=== PATIENT | male | born 1955 | race Caucasian/White ===

== ENCOUNTER 2017-11-28 10:34 | Inpatient (IN) | payer MEDICARE ==
[~2017-11-28] VITALS: Ht 180.3 cm; Wt 106.1 kg
[~2017-11-28 10:34] MED LIST: ASPI-1012 PO; CLIN300C9 PO; INSU100I13 SQ; LISI-613 PO; METF500T6 PO; PRAV40TA3 PO
[2017-11-28] MEDS ORDERED: DEXAMETHASONE SOD PHOSPHATE 10MG/ML 1ML VIAL ONE (11:25)
[2017-11-28] MEDS ORDERED: IPRATROPIUM/ALBUTEROL SULFATE 3 ML SOLUTION IH ONE ×2 (11:34→20:15)
[2017-11-28] MEDS ORDERED: ALBUTEROL SULFATE 0.083% 2.5 MG/3 ML INH IH ONE (13:26)
[2017-11-28 13:27] LABS: BASOPHILS % (AUTO) 0.4 % (0.0-5.0); EOSINOPHILS % (AUTO) 2.5 % (0.0-8.0); HEMATOCRIT 34.8 % (42-54); LYMPHOCYTES % (AUTO) 13.4 % (21.0-51.0); MEAN CORPUSCULAR HEMOGLOBIN 29.6 pg (27.0-33.0); MEAN CORPUSCULAR HGB CONC 34.4 g/dL (32.0-36.0); MEAN CORPUSCULAR VOLUME 86.1 fL (79-99); NEUTROPHILS % (AUTO) 80.7 % (40.0-77.0); PLATELET COUNT (AUTO) 268 K/uL (130-400); RED BLOOD CELL COUNT(AUTO) 4.05 MIL/uL (4.50-6.20); RED CELL DISTRIBUTION WIDTH 14.8 % (11.0-15.5); WHITE BLOOD COUNT (AUTO) 12.5 K/uL (4.8-10.8)
[2017-11-28 13:36] LABS: CREATININE 1.5 mg/dL (0.5-1.5); POTASSIUM 4.6 mmol/L (3.5-5.1)
[2017-11-28 13:51] LABS: CREATINE KINASE MB 1.2 ng/mL (0.5-3.6); CREATINE KINASE, TOTAL 248 U/L (21-232); MYOGLOBIN 139 ng/mL (10-92); TROPONIN I < 0.04 ng/mL (0.00-0.06)
[2017-11-28 13:56] LABS: B-TYPE NATRIURETIC PEPTIDE 75 pg/mL (0-100)
[2017-11-28] MEDS ORDERED: LEVOFLOXACIN 500 MG/D5W 100 ML 100 ML ONE (15:36)
[2017-11-28] MEDS ORDERED: METHYLPREDNISOLONE SOD SUCC 40MG/ML 1ML ONE (18:46)
[2017-11-28] MEDS ORDERED: ENOXAPARIN SODIUM 40 MG/0.4 ML SYRINGE SQ ONE (18:46)
[2017-11-28] MEDS ORDERED: CEFEPIME HCL 1 GM VIAL ONE (18:46)
[2017-11-28] MEDS ORDERED: INSULIN HUMULIN R 100 UNIT/ML 3ML ONE (20:24)
[2017-11-28] MEDS ORDERED: ACETAMINOPHEN 325 MG TAB ONE (21:08)
[2017-11-28 22:45] VITALS: BP 189/84
[2017-11-28] MEDS ORDERED: ACETAMINOPHEN 325 MG TAB PO PRN (23:15)
[2017-11-28] MEDS ORDERED: ONDANSETRON HCL 4 MG/2 ML VIAL IVP PRN (23:15)
[2017-11-28] MEDS ORDERED: DEXTROSE 50%-WATER 50 ML DISP.SYRIN IV PRN (23:15)
[2017-11-28] MEDS ORDERED: GLUCAGON 1MG KIT 1 MG ML IM PRN (23:15)
[2017-11-28 23:43] VITALS: BP 189/84
[2017-11-28] MEDS: IPRATROPIUM/ALBUTEROL SULFATE 3 ML SOLUTION IH SCH (23:54)
[2017-11-29] MEDS ORDERED: METOPROLOL TARTRATE 50 MG TAB ONE (00:13)
[2017-11-29] MEDS ORDERED: METOPROLOL TARTRATE 50 MG TAB PO ONE (00:15)
[2017-11-29 03:57] VITALS: BP 158/78
[2017-11-29 04:05] LABS: BASOPHILS % (AUTO) 0.1 % (0.0-5.0); HEMATOCRIT 32.1 % (42-54); LYMPHOCYTES % (AUTO) 14.9 % (21.0-51.0); MEAN CORPUSCULAR HEMOGLOBIN 29.5 pg (27.0-33.0); MEAN CORPUSCULAR VOLUME 86.8 fL (79-99); MONOCYTES % (AUTO) 4.1 % (3.0-13.0); NEUTROPHILS % (AUTO) 80.9 % (40.0-77.0); PLATELET COUNT (AUTO) 281 K/uL (130-400); RED CELL DISTRIBUTION WIDTH 15.2 % (11.0-15.5); WHITE BLOOD COUNT (AUTO) 8.6 K/uL (4.8-10.8)
[2017-11-29 04:16] LABS: INR 0.97 (0.85-1.15); PARTIAL THROMBOPLASTIN TIME 24.4 SEC (26.3-35.5); PROTHROMBIN TIME 10.2 SEC (9.6-11.6)
[2017-11-29] MEDS: CEFEPIME HCL 1 GM VIAL IVP SCH ×3 (04:23→20:59)
[2017-11-29 05:07] LABS: CREATININE 1.8 mg/dL (0.5-1.5); POTASSIUM 5.5 mmol/L (3.5-5.1)
[2017-11-29 05:11] LABS: ALBUMIN 2.3 g/dL (3.5-5.0); BILIRUBIN,TOTAL 0.3 mg/dL (0.2-1.0); MAGNESIUM 1.5 mg/dL (1.80-2.40); PHOSPHORUS 2.6 mg/dL (2.5-4.9); TOTAL PROTEIN, SERUM 6.7 g/dL (6.0-8.3)
[2017-11-29] MEDS: INSULIN R PO SS1 SQ SCH ×4 (06:30→20:55)
[2017-11-29] MEDS: IPRATROPIUM/ALBUTEROL SULFATE 3 ML SOLUTION IH SCH ×4 (06:51→23:38)
[2017-11-29 08:00] VITALS: BP 170/85
[2017-11-29] MEDS: METHYLPREDNISOLONE SOD SUCC 40MG/ML 1ML IVP SCH (08:37)
[2017-11-29] MEDS: METOPROLOL TARTRATE 50 MG TAB PO SCH ×2 (08:37→21:00)
[2017-11-29] MEDS: ENOXAPARIN SODIUM 40 MG/0.4 ML SYRINGE SQ SCH (08:38)
[2017-11-29 11:52] VITALS: BP 167/85
[2017-11-29] MEDS ORDERED: SODIUM CHLORIDE 3% FOR INHALATION 4 ML/AMP VIAL.NEB IH ONE (13:44)
[2017-11-29 16:00] VITALS: BP 153/89
[2017-11-29] MEDS: LEVOFLOXACIN 500 MG/D5W 100 ML 100 ML IV SCH (16:07)
[2017-11-29 20:00] VITALS: BP 158/83
[2017-11-30] VITALS: BP 166/84
[2017-11-30 04:00] VITALS: BP 168/84
[2017-11-30] MEDS: CEFEPIME HCL 1 GM VIAL IVP SCH ×3 (04:02→17:33)
[2017-11-30] MEDS: INSULIN R PO SS1 SQ SCH ×4 (06:18→21:52)
[2017-11-30] MEDS: IPRATROPIUM/ALBUTEROL SULFATE 3 ML SOLUTION IH SCH ×4 (07:08→23:22)
[2017-11-30 08:07] VITALS: BP 132/81
[2017-11-30] MEDS: OSELTAMIVIR PHOSPHATE 75 MG CAP PO SCH (09:27)
[2017-11-30] MEDS: ENOXAPARIN SODIUM 40 MG/0.4 ML SYRINGE SQ SCH (09:27)
[2017-11-30] MEDS: METHYLPREDNISOLONE SOD SUCC 40MG/ML 1ML IVP SCH (09:27)
[2017-11-30] MEDS: METOPROLOL TARTRATE 50 MG TAB PO SCH ×2 (09:27→21:50)
[2017-11-30] MEDS ORDERED: SODIUM POLYSTYRENE SULFONATE 15 GM/60 ML ML PO SCH (10:45)
[2017-11-30 12:01] VITALS: BP 158/88
[2017-11-30] MEDS: LEVOFLOXACIN 500 MG/D5W 100 ML 100 ML IV SCH (14:34)
[2017-11-30] MEDS: MAGNESIUM 2GM PREMIX 50ML 50 ML IV SCH (14:34)
[2017-11-30 16:00] VITALS: BP 158/86
[2017-11-30] MEDS ORDERED: BENZONATATE 100 MG CAPSULE PO PRN (16:45)
[2017-11-30 19:00] VITALS: BP 161/83
[2017-12-01] VITALS (10 sets, daily range): BP systolic 114–177; BP diastolic 57–87
[2017-12-01 03:41] LABS: HEMATOCRIT 33.5 % (42-54); MEAN CORPUSCULAR HEMOGLOBIN 28.9 pg (27.0-33.0); MEAN CORPUSCULAR HGB CONC 33.6 g/dL (32.0-36.0); MEAN CORPUSCULAR VOLUME 86.2 fL (79-99); PLATELET COUNT (AUTO) 324 K/uL (130-400); RED BLOOD CELL COUNT(AUTO) 3.88 MIL/uL (4.50-6.20); RED CELL DISTRIBUTION WIDTH 15.4 % (11.0-15.5); WHITE BLOOD COUNT (AUTO) 12.1 K/uL (4.8-10.8)
[2017-12-01 03:57] LABS: CREATININE 1.5 mg/dL (0.5-1.5); POTASSIUM 3.8 mmol/L (3.5-5.1)
[2017-12-01] MEDS: CEFEPIME HCL 1 GM VIAL IVP SCH ×3 (04:12→18:16)
[2017-12-01] MEDS: IPRATROPIUM/ALBUTEROL SULFATE 3 ML SOLUTION IH SCH ×3 (06:24→19:38)
[2017-12-01] MEDS: INSULIN R PO SS1 SQ SCH ×4 (06:30→20:50)
[2017-12-01] MEDS: METOPROLOL TARTRATE 50 MG TAB PO SCH ×2 (09:38→20:13)
[2017-12-01] MEDS: OSELTAMIVIR PHOSPHATE 75 MG CAP PO SCH (09:38)
[2017-12-01] MEDS: METHYLPREDNISOLONE SOD SUCC 40MG/ML 1ML IVP SCH (09:38)
[2017-12-01] MEDS: ENOXAPARIN SODIUM 40 MG/0.4 ML SYRINGE SQ SCH (09:39)
[2017-12-01] MEDS ORDERED: OMEG-53 PO (10:15)
[2017-12-01] MEDS ORDERED: METO25TA6 PO (10:15)
[2017-12-01] MEDS ORDERED: TRAZ-144 PO ×2 (10:15→12:05)
[2017-12-01] MEDS ORDERED: ASPI-1197 PO (10:15)
[2017-12-01] MEDS ORDERED: IRON PO (10:15)
[2017-12-01] MEDS ORDERED: CYAN-35 PO (10:15)
[2017-12-01] MEDS ORDERED: FOLIC PO (10:15)
[2017-12-01] MEDS ORDERED: FURO20TA4 PO (10:15)
[2017-12-01] MEDS ORDERED: AMIO200T2 PO (10:15)
[2017-12-01] MEDS ORDERED: LISI10TA7 PO (10:15)
[2017-12-01] MEDS ORDERED: AMIT10TA6 PO (10:15)
[2017-12-01] MEDS ORDERED: AMITRIPTYLINE HCL 10 MG TABLET PO SCH (12:00)
[2017-12-01] MEDS ORDERED: PRAV40TA3 PO (12:05)
[2017-12-01] MEDS: MAGNESIUM 2GM PREMIX 50ML 50 ML IV SCH (12:10)
[2017-12-01] MEDS: LISINOPRIL 10 MG TABLET PO SCH (12:26)
[2017-12-01] MEDS: LEVOFLOXACIN 500 MG/D5W 100 ML 100 ML IV SCH (15:41)
[2017-12-01] MEDS: METFORMIN HCL 500 MG TABLET PO SCH (17:22)
[2017-12-01] MEDS: FLUCONAZOLE 200 MG/NS 100 ML 100 ML IV SCH (17:22)
[2017-12-01] MEDS: INSULIN HUMULIN 70/30 100 UNIT/ML 3ML SQ SCH (17:32)
[2017-12-01] MEDS: ATORVASTATIN CALCIUM 10 MG TABLET PO SCH (20:13)
[2017-12-01] MEDS: FUROSEMIDE 20 MG TABLET PO SCH (20:13)
[2017-12-01] MEDS: TRAZODONE HCL 50 MG TAB PO SCH (20:13)
[2017-12-02] MEDS: IPRATROPIUM/ALBUTEROL SULFATE 3 ML SOLUTION IH SCH ×4 (00:09→16:57)
[2017-12-02] MEDS: CEFEPIME HCL 1 GM VIAL IVP SCH (02:57)
[2017-12-02 03:46] VITALS: BP 125/76
[2017-12-02] MEDS: INSULIN R PO SS1 SQ SCH ×4 (05:58→21:00)
[2017-12-02] MEDS: LISINOPRIL 10 MG TABLET PO SCH (08:38)
[2017-12-02] MEDS: AMIODARONE HCL 200 MG TABLET PO SCH (08:38)
[2017-12-02] MEDS: FISH OIL 1000 MG/CAP PO SCH (08:38)
[2017-12-02] MEDS: METOPROLOL TARTRATE 50 MG TAB PO SCH ×2 (08:39→20:22)
[2017-12-02] MEDS: ASPIRIN 81MG TAB.CHEW PO SCH (08:39)
[2017-12-02] MEDS: FUROSEMIDE 20 MG TABLET PO SCH ×2 (08:39→20:21)
[2017-12-02] MEDS: FERROUS SULFATE 325 MG TABLET.DR PO SCH (08:39)
[2017-12-02] MEDS: OSELTAMIVIR PHOSPHATE 75 MG CAP PO SCH (08:39)
[2017-12-02] MEDS: METFORMIN HCL 500 MG TABLET PO SCH ×2 (08:39→16:29)
[2017-12-02] MEDS: METHYLPREDNISOLONE SOD SUCC 40MG/ML 1ML IVP SCH (08:40)
[2017-12-02] MEDS: ENOXAPARIN SODIUM 40 MG/0.4 ML SYRINGE SQ SCH (08:40)
[2017-12-02] MEDS: FLUCONAZOLE 200 MG/NS 100 ML 100 ML IV SCH (08:41)
[2017-12-02] MEDS: INSULIN HUMULIN 70/30 100 UNIT/ML 3ML SQ SCH ×2 (08:54→20:44)
[2017-12-02] MEDS ORDERED: FLUCONAZOLE 200 MG/NS 100 ML 100 ML IV SCH (09:00)
[2017-12-02] MEDS ORDERED: LISINOPRIL 10 MG TABLET PO SCH (09:00)
[2017-12-02] MEDS: FOLIC PO SCH (09:00)
[2017-12-02 09:07] VITALS: BP 135/83
[2017-12-02] MEDS: CYANOCOBALAMIN (VITAMIN B-12) 1,000 MCG TABLET PO SCH (09:42)
[2017-12-02 12:08] VITALS: BP 153/72
[2017-12-02 15:47] VITALS: BP 147/94
[2017-12-02] MEDS: LEVOFLOXACIN 500 MG/D5W 100 ML 100 ML IV SCH (16:29)
[2017-12-02 19:35] VITALS: BP 158/62
[2017-12-02] MEDS: ATORVASTATIN CALCIUM 10 MG TABLET PO SCH (20:21)
[2017-12-02] MEDS: TRAZODONE HCL 50 MG TAB PO SCH (20:21)
[2017-12-02 23:21] VITALS: BP 147/86
[2017-12-03] MEDS: IPRATROPIUM/ALBUTEROL SULFATE 3 ML SOLUTION IH SCH ×4 (00:19→19:07)
[2017-12-03 03:00] VITALS: BP 123/85
[2017-12-03] MEDS: INSULIN R PO SS1 SQ SCH ×3 (06:15→20:19)
[2017-12-03 06:18] LABS: HEMATOCRIT 36.5 % (42-54); MEAN CORPUSCULAR HEMOGLOBIN 28.9 pg (27.0-33.0); MEAN CORPUSCULAR HGB CONC 33.7 g/dL (32.0-36.0); MEAN CORPUSCULAR VOLUME 85.7 fL (79-99); PLATELET COUNT (AUTO) 377 K/uL (130-400); RED BLOOD CELL COUNT(AUTO) 4.26 MIL/uL (4.50-6.20); WHITE BLOOD COUNT (AUTO) 13.5 K/uL (4.8-10.8)
[2017-12-03 06:26] LABS: CREATININE 1.6 mg/dL (0.5-1.5); MAGNESIUM 1.8 mg/dL (1.80-2.40); POTASSIUM 3.9 mmol/L (3.5-5.1)
[2017-12-03 07:33] VITALS: BP 114/49
[2017-12-03] MEDS: FOLIC PO SCH (08:10)
[2017-12-03] MEDS: FISH OIL 1000 MG/CAP PO SCH (08:37)
[2017-12-03] MEDS: ASPIRIN 81MG TAB.CHEW PO SCH (08:38)
[2017-12-03] MEDS: METHYLPREDNISOLONE SOD SUCC 40MG/ML 1ML IVP SCH (08:38)
[2017-12-03] MEDS: METFORMIN HCL 500 MG TABLET PO SCH (08:38)
[2017-12-03] MEDS: FUROSEMIDE 20 MG TABLET PO SCH ×2 (08:38→20:14)
[2017-12-03] MEDS: METOPROLOL TARTRATE 50 MG TAB PO SCH ×2 (08:38→20:14)
[2017-12-03] MEDS: AMIODARONE HCL 200 MG TABLET PO SCH (08:38)
[2017-12-03] MEDS: CYANOCOBALAMIN (VITAMIN B-12) 1,000 MCG TABLET PO SCH (08:38)
[2017-12-03] MEDS: OSELTAMIVIR PHOSPHATE 75 MG CAP PO SCH (08:38)
[2017-12-03] MEDS: FERROUS SULFATE 325 MG TABLET.DR PO SCH (08:38)
[2017-12-03] MEDS: FLUCONAZOLE 200 MG/NS 100 ML 100 ML IV SCH (08:39)
[2017-12-03] MEDS: LISINOPRIL 10 MG TABLET PO SCH (08:40)
[2017-12-03] MEDS: ENOXAPARIN SODIUM 40 MG/0.4 ML SYRINGE SQ SCH (08:40)
[2017-12-03] MEDS: INSULIN HUMULIN 70/30 100 UNIT/ML 3ML SQ SCH ×2 (08:56→20:18)
[2017-12-03 11:24] VITALS: BP 117/70
[2017-12-03] MEDS: LEVOFLOXACIN 500 MG/D5W 100 ML 100 ML IV SCH (15:22)
[2017-12-03 16:15] VITALS: BP 124/64
[2017-12-03 19:15] VITALS: BP 130/59
[2017-12-03] MEDS: ATORVASTATIN CALCIUM 10 MG TABLET PO SCH (20:14)
[2017-12-03] MEDS: TRAZODONE HCL 50 MG TAB PO SCH (21:26)
[2017-12-03 23:20] VITALS: BP 135/72
[2017-12-04] MEDS: IPRATROPIUM/ALBUTEROL SULFATE 3 ML SOLUTION IH SCH ×3 (00:40→12:23)
[2017-12-04 03:20] VITALS: BP 136/71
[2017-12-04] MEDS: INSULIN R PO SS1 SQ SCH ×2 (06:41→11:30)
[2017-12-04] MEDS: FLUCONAZOLE 200 MG/NS 100 ML 100 ML IV SCH (07:58)
[2017-12-04] MEDS: OSELTAMIVIR PHOSPHATE 75 MG CAP PO SCH (07:58)
[2017-12-04] MEDS: ASPIRIN 81MG TAB.CHEW PO SCH (07:58)
[2017-12-04] MEDS: FERROUS SULFATE 325 MG TABLET.DR PO SCH (07:58)
[2017-12-04] MEDS: AMIODARONE HCL 200 MG TABLET PO SCH (07:58)
[2017-12-04] MEDS: CYANOCOBALAMIN (VITAMIN B-12) 1,000 MCG TABLET PO SCH (07:58)
[2017-12-04] MEDS: METFORMIN HCL 500 MG TABLET PO SCH (07:58)
[2017-12-04] MEDS: FISH OIL 1000 MG/CAP PO SCH (07:58)
[2017-12-04] MEDS: FUROSEMIDE 20 MG TABLET PO SCH (07:59)
[2017-12-04] MEDS: LISINOPRIL 10 MG TABLET PO SCH (07:59)
[2017-12-04] MEDS: METOPROLOL TARTRATE 50 MG TAB PO SCH (07:59)
[2017-12-04 08:00] VITALS: BP 135/70
[2017-12-04] MEDS: ENOXAPARIN SODIUM 40 MG/0.4 ML SYRINGE SQ SCH (08:00)
[2017-12-04] MEDS: INSULIN HUMULIN 70/30 100 UNIT/ML 3ML SQ SCH (08:14)
[2017-12-04] MEDS: METHYLPREDNISOLONE SOD SUCC 40MG/ML 1ML IVP SCH (09:51)
[2017-12-04 11:00] VITALS: BP 127/58
[2017-12-04] MEDS ORDERED: FLUC200T8 PO (14:37)
[2017-12-04] MEDS ORDERED: LEVO500T89 PO (14:37)
[2017-12-04] MEDS: LEVOFLOXACIN 500 MG/D5W 100 ML 100 ML IV SCH (14:48)
== END 2017-12-04 16:55 | disposition home or self-care (01) | DRG 871 ==
LOC: EDH 10:34 → EDHIP 15:11 → MERGE 15:11 → 3AH 22:07
PROVIDERS: ADMIT Internal Medicine Infectious Disease; ATTEND Internal Medicine Infectious Disease
DX: A41.9 Sepsis, unspecified organism (principal); J11.00 Influenza due to unidentified influenza virus with unspecified type of pneumonia; N17.9 Acute kidney failure, unspecified; E11.9 Type 2 diabetes mellitus without complications; I10 Essential (primary) hypertension; E78.5 Hyperlipidemia, unspecified; N28.9 Disorder of kidney and ureter, unspecified; F32.9 Major depressive disorder, single episode, unspecified; E66.01 Morbid (severe) obesity due to excess calories; Z68.32 Body mass index [BMI] 32.0-32.9, adult; Z83.3 Family history of diabetes mellitus; Z82.49 Family history of ischemic heart disease and other diseases of the circulatory system
CPT/HCPCS: 36415; 71046; 71250; 80048; 80053; 82550; 82553; 82948; 83605; 83735; 83874; 83880; 84100; 84484; 85025; 85027; 85610; 85730; 87040; 87071; 87205; 93005; 94640; 94664; A4218; J0692; J1100; J1450; J1650; J1815; J1956; J2920; J3475

== ENCOUNTER 2022-06-10 19:21 | Inpatient (IN) | payer MEDICARE, OTHER ==
[~2022-06-10] VITALS: Ht 180.3 cm; Wt 97.6 kg
[~2022-06-10 19:21] MED LIST changes: +AMIO200T68 PO; +AMIT10TA6 PO; -ASPI-1012 PO; +ASPI-1197 PO; -CLIN300C9 PO; +CYAN-35 PO; +FLUC200T12 PO; +FOLIC PO; +FURO20TA4 PO; +IRON PO; +LEVO-70 PO; -LISI-613 PO; +LISI10TA24 PO; +METF-444 PO; -METF500T6 PO; +METO25TA6 PO; +OMEG-53 PO; +TRAZ-185 PO
[2022-06-10 20:33] LABS: BASOPHILS % (AUTO) 0.3 % (0.0-5.0); HEMATOCRIT 28.4 % (42-54); LYMPHOCYTES % (AUTO) 34.6 % (21.0-51.0); MEAN CORPUSCULAR HEMOGLOBIN 31.8 pg (27.0-33.0); MEAN CORPUSCULAR HGB CONC 33.8 g/dL (32.0-36.0); MONOCYTES % (AUTO) 8.2 % (3.0-13.0); NEUTROPHILS % (AUTO) 51.6 % (40.0-77.0); PLATELET COUNT (AUTO) 220 K/uL (130-400); RED BLOOD CELL COUNT(AUTO) 3.02 MIL/uL (4.50-6.20); RED CELL DISTRIBUTION WIDTH 13.7 % (11.0-15.5); WHITE BLOOD COUNT (AUTO) 8.8 K/uL (4.8-10.8)
[2022-06-10 20:35] LABS: APPEARANCE,URINE SL CLOUDY (CLEAR); BILIRUBIN,URINE NEGATIVE (NEGATIVE); COLOR,URINE YELLOW (YELLOW); GLUCOSE, URINE (UA) >=1000 mg/dL (NEGATIVE); KETONES,URINE 5 mg/dL (NEGATIVE); LEUKOCYTE ESTERASE ,URINE NEGATIVE (NEGATIVE); NITRATE,URINE NEGATIVE (NEGATIVE); OCCULT BLOOD,URINE NEGATIVE (NEGATIVE); PROTEIN,URINE 100 mg/dL (NEGATIVE)
[2022-06-10 20:43] LABS: BACTERIA,URINE Rare /HPF (None Seen); RBC,URINE 0-1 /HPF (0-1); SQUAMOUS EPITHELIAL CELL,UR Rare /HPF (0-2)
[2022-06-10 20:47] LABS: ABG BASE EXCESS -3.6 mmol/L (-2.0-3.0); ABG HCO3 20.6 mmol/L (21.0-28.0); ABG OXYGEN SATURATION 94.1 % (95.0-99.0); ABG PCO2 35 mmHg (35-48)
[2022-06-10 20:54] LABS: ALBUMIN 3.3 g/dL (3.5-5.0); CREATININE 2.4 mg/dL (0.5-1.5); POTASSIUM 4.1 mmol/L (3.5-5.1)
[2022-06-10] MEDS ORDERED: GUAIFENESIN-DM 200/20 MG 10 ML PO ONE (23:00)
[2022-06-10] MEDS ORDERED: IPRATROPIUM/ALBUTEROL SULFATE 3 ML SOLUTION IH ONE (23:00)
[2022-06-10] MEDS ORDERED: FUROSEMIDE 40MG VIAL IV ONE (23:00)
[2022-06-11] MEDS ORDERED: ACETAMINOPHEN 325 MG TAB PO PRN
[2022-06-11 00:52] VITALS: BP 151/73
[2022-06-11 04:38] VITALS: BP 117/57
[2022-06-11 05:42] LABS: BASOPHILS % (AUTO) 0.2 % (0.0-5.0); EOSINOPHILS % (AUTO) 4.2 % (0.0-8.0); HEMATOCRIT 25.8 % (42-54); LYMPHOCYTES % (AUTO) 29.4 % (21.0-51.0); MEAN CORPUSCULAR HGB CONC 34.1 g/dL (32.0-36.0); MEAN CORPUSCULAR VOLUME 93.8 fL (79-99); MONOCYTES % (AUTO) 9.2 % (3.0-13.0); NEUTROPHILS % (AUTO) 56.6 % (40.0-77.0); PLATELET COUNT (AUTO) 176 K/uL (130-400); RED BLOOD CELL COUNT(AUTO) 2.75 MIL/uL (4.50-6.20); RED CELL DISTRIBUTION WIDTH 13.7 % (11.0-15.5)
[2022-06-11 05:59] LABS: CREATININE 2.3 mg/dL (0.5-1.5); MAGNESIUM 1.8 mg/dL (1.80-2.40); POTASSIUM 4.6 mmol/L (3.5-5.1)
[2022-06-11 08:00] VITALS: BP 150/77
[2022-06-11] MEDS: DOXYCYCLINE HYCLATE 100 MG TABLET PO SCH ×2 (09:20→20:54)
[2022-06-11] MEDS ORDERED: GUAIFENESIN-DM 200/20 MG 10 ML PO PRN (09:30)
[2022-06-11] MEDS: CEFEPIME HCL 2 GM VIAL IVP SCH ×2 (11:51)
[2022-06-11 12:00] VITALS: BP 126/64
[2022-06-11] MEDS ORDERED: DEXTROSE 50%-WATER 50 ML DISP.SYRIN IV PRN (14:00)
[2022-06-11] MEDS ORDERED: GLUCAGON 1MG KIT 1 MG ML IM PRN (14:00)
[2022-06-11] MEDS: FAMOTIDINE 20MG VIAL IV SCH (15:56)
[2022-06-11] MEDS: HEPARIN 5,000 UNIT VIAL SQ SCH (15:57)
[2022-06-11] MEDS: INSULIN HUMULIN R 100 UNIT/ML 3ML SQ SCH ×2 (15:58→20:55)
[2022-06-11 16:00] VITALS: BP 120/62
[2022-06-11] MEDS: FUROSEMIDE 20 MG TABLET PO SCH (17:23)
[2022-06-11] MEDS ORDERED: DULO30CA52 PO (17:40)
[2022-06-11] MEDS ORDERED: OMEP20CA12 PO (17:40)
[2022-06-11] MEDS ORDERED: INSU100V37 SQ (17:44)
[2022-06-11 19:00] VITALS: BP 133/64
[2022-06-11] MEDS: IPRATROPIUM/ALBUTEROL SULFATE 3 ML SOLUTION IH PRN (20:31)
[2022-06-11] MEDS: ATORVASTATIN 10 MG TABLET PO SCH (20:54)
[2022-06-11] MEDS: METOPROLOL TARTRATE 25 MG TAB PO SCH (20:54)
[2022-06-11] MEDS: DULOXETINE HCL 30 MG CAP PO SCH (20:54)
[2022-06-12] VITALS (8 sets, daily range): BP systolic 97–153; BP diastolic 56–75
[2022-06-12] MEDS: CEFEPIME HCL 2 GM VIAL IVP SCH ×3 (00:21→23:49)
[2022-06-12] MEDS: HEPARIN 5,000 UNIT VIAL SQ SCH ×2 (03:23→13:38)
[2022-06-12] MEDS: IPRATROPIUM/ALBUTEROL SULFATE 3 ML SOLUTION IH PRN ×2 (06:26→23:51)
[2022-06-12] MEDS: INSULIN HUMULIN R 100 UNIT/ML 3ML SQ SCH ×4 (07:30→20:44)
[2022-06-12] MEDS: FAMOTIDINE 20MG VIAL IV SCH (08:28)
[2022-06-12] MEDS: SOLU-MEDROL 40MG VIAL IVP SCH (08:29)
[2022-06-12] MEDS: ASPIRIN 81MG CHEW TAB PO SCH (08:33)
[2022-06-12] MEDS: FERROUS SULFATE 325 MG TABLET.DR PO SCH (08:33)
[2022-06-12] MEDS: CYANOCOBALAMIN (VITAMIN B-12) 1,000 MCG TABLET PO SCH (08:33)
[2022-06-12] MEDS: DOXYCYCLINE HYCLATE 100 MG TABLET PO SCH ×2 (08:34→20:44)
[2022-06-12] MEDS: METOPROLOL TARTRATE 25 MG TAB PO SCH ×2 (08:34→20:44)
[2022-06-12] MEDS: PANTOPRAZOLE 40 MG TAB DR PO SCH (08:34)
[2022-06-12] MEDS: DULOXETINE HCL 30 MG CAP PO SCH ×2 (08:37→20:44)
[2022-06-12] MEDS: FOLIC ACID 400 MCG PO SCH (08:38)
[2022-06-12] MEDS: LISINOPRIL 10 MG TABLET PO SCH (10:50)
[2022-06-12] MEDS: FUROSEMIDE 20 MG TABLET PO SCH ×2 (12:07→21:29)
[2022-06-12] MEDS: BENZONATATE 100 MG CAPSULE PO SCH ×2 (16:54→23:49)
[2022-06-12] MEDS: ATORVASTATIN 10 MG TABLET PO SCH (20:44)
[2022-06-13 00:57] VITALS: BP 131/62
[2022-06-13] MEDS: HEPARIN 5,000 UNIT VIAL SQ SCH ×2 (03:07→14:35)
[2022-06-13 04:27] VITALS: BP 144/71
[2022-06-13 04:57] LABS: MEAN CORPUSCULAR HEMOGLOBIN 32.4 pg (27.0-33.0); MEAN CORPUSCULAR HGB CONC 34.4 g/dL (32.0-36.0); MEAN CORPUSCULAR VOLUME 94.1 fL (79-99); RED BLOOD CELL COUNT(AUTO) 2.87 MIL/uL (4.50-6.20); RED CELL DISTRIBUTION WIDTH 13.2 % (11.0-15.5); WHITE BLOOD COUNT (AUTO) 9.9 K/uL (4.8-10.8)
[2022-06-13 05:07] LABS: MAGNESIUM 1.8 mg/dL (1.80-2.40); POTASSIUM 4.1 mmol/L (3.5-5.1)
[2022-06-13] MEDS: IPRATROPIUM/ALBUTEROL SULFATE 3 ML SOLUTION IH PRN (06:48)
[2022-06-13] MEDS: FUROSEMIDE 20 MG TABLET PO SCH ×2 (06:51→16:53)
[2022-06-13] MEDS: INSULIN HUMULIN R 100 UNIT/ML 3ML SQ SCH ×4 (06:52→20:12)
[2022-06-13 07:02] VITALS: BP 127/82
[2022-06-13] MEDS: FOLIC ACID 400 MCG PO SCH (09:00)
[2022-06-13] MEDS: ASPIRIN 81MG CHEW TAB PO SCH (09:52)
[2022-06-13] MEDS: FAMOTIDINE 20MG VIAL IV SCH (09:52)
[2022-06-13] MEDS: DOXYCYCLINE HYCLATE 100 MG TABLET PO SCH ×2 (09:53→20:06)
[2022-06-13] MEDS: METOPROLOL TARTRATE 25 MG TAB PO SCH ×2 (09:53→20:06)
[2022-06-13] MEDS: PANTOPRAZOLE 40 MG TAB DR PO SCH (09:53)
[2022-06-13] MEDS: DULOXETINE HCL 30 MG CAP PO SCH ×2 (09:53→20:05)
[2022-06-13] MEDS: CYANOCOBALAMIN (VITAMIN B-12) 1,000 MCG TABLET PO SCH (09:53)
[2022-06-13] MEDS: FERROUS SULFATE 325 MG TABLET.DR PO SCH (09:53)
[2022-06-13] MEDS: LISINOPRIL 10 MG TABLET PO SCH (09:53)
[2022-06-13] MEDS: BENZONATATE 100 MG CAPSULE PO SCH ×2 (09:59→16:53)
[2022-06-13] MEDS: SOLU-MEDROL 40MG VIAL IVP SCH (09:59)
[2022-06-13] MEDS ORDERED: MAGNESIUM 2GM PREMIX 50ML 50 ML IV SCH (11:00)
[2022-06-13] MEDS: CEFEPIME HCL 2 GM VIAL IVP SCH (11:58)
[2022-06-13 12:02] VITALS: BP 118/60
[2022-06-13 16:06] VITALS: BP 129/54
[2022-06-13] MEDS: ATORVASTATIN 10 MG TABLET PO SCH (20:06)
[2022-06-13 20:19] VITALS: BP 127/69
[2022-06-14] MEDS: CEFEPIME HCL 2 GM VIAL IVP SCH ×3 (00:09→23:13)
[2022-06-14] MEDS: BENZONATATE 100 MG CAPSULE PO SCH ×3 (00:09→16:30)
[2022-06-14 01:43] VITALS: BP 142/73
[2022-06-14] MEDS: HEPARIN 5,000 UNIT VIAL SQ SCH ×2 (02:25→14:07)
[2022-06-14 04:21] VITALS: BP 128/69
[2022-06-14] MEDS: INSULIN HUMULIN R 100 UNIT/ML 3ML SQ SCH ×2 (05:33→14:07)
[2022-06-14] MEDS: FUROSEMIDE 20 MG TABLET PO SCH ×2 (06:16→23:13)
[2022-06-14 07:09] VITALS: BP 125/76
[2022-06-14] MEDS: ASPIRIN 81MG CHEW TAB PO SCH (08:50)
[2022-06-14] MEDS: FAMOTIDINE 20MG VIAL IV SCH (08:50)
[2022-06-14] MEDS: CYANOCOBALAMIN (VITAMIN B-12) 1,000 MCG TABLET PO SCH (08:51)
[2022-06-14] MEDS: PANTOPRAZOLE 40 MG TAB DR PO SCH (08:51)
[2022-06-14] MEDS: LISINOPRIL 10 MG TABLET PO SCH (08:51)
[2022-06-14] MEDS: FERROUS SULFATE 325 MG TABLET.DR PO SCH (08:51)
[2022-06-14] MEDS: DULOXETINE HCL 30 MG CAP PO SCH ×2 (08:51→20:02)
[2022-06-14] MEDS: SOLU-MEDROL 40MG VIAL IVP SCH (08:51)
[2022-06-14] MEDS: DOXYCYCLINE HYCLATE 100 MG TABLET PO SCH ×2 (08:51→20:02)
[2022-06-14] MEDS: METOPROLOL TARTRATE 25 MG TAB PO SCH ×2 (08:51→20:03)
[2022-06-14] MEDS: FOLIC ACID 400 MCG PO SCH (08:52)
[2022-06-14] MEDS ORDERED: INSULIN GLARGINE 100 UNITS/ML 10 ML VIAL SQ SCH (10:00)
[2022-06-14 10:59] LABS: BASOPHILS % (AUTO) 0.2 % (0.0-5.0); HEMATOCRIT 30.1 % (42-54); LYMPHOCYTES % (AUTO) 15.7 % (21.0-51.0); MEAN CORPUSCULAR HEMOGLOBIN 32.5 pg (27.0-33.0); MEAN CORPUSCULAR HGB CONC 33.9 g/dL (32.0-36.0); MEAN CORPUSCULAR VOLUME 95.9 fL (79-99); MONOCYTES % (AUTO) 4.5 % (3.0-13.0); NEUTROPHILS % (AUTO) 76.2 % (40.0-77.0); PLATELET COUNT (AUTO) 239 K/uL (130-400); RED BLOOD CELL COUNT(AUTO) 3.14 MIL/uL (4.50-6.20); RED CELL DISTRIBUTION WIDTH 13.9 % (11.0-15.5); WHITE BLOOD COUNT (AUTO) 8.9 K/uL (4.8-10.8)
[2022-06-14 11:24] LABS: POTASSIUM 5.3 mmol/L (3.5-5.1)
[2022-06-14 11:28] LABS: ALBUMIN 3.2 g/dL (3.5-5.0); TOTAL PROTEIN, SERUM 7.9 g/dL (6.0-8.3)
[2022-06-14 12:19] VITALS: BP 131/67
[2022-06-14] MEDS: IPRATROPIUM/ALBUTEROL SULFATE 3 ML SOLUTION IH SCH ×3 (12:46→23:00)
[2022-06-14 16:02] VITALS: BP 109/56
[2022-06-14] MEDS: ATORVASTATIN 10 MG TABLET PO SCH (20:02)
[2022-06-14] MEDS: INSULIN GLARGINE 100 UNITS/ML 10 ML VIAL SQ SCH (20:07)
[2022-06-14] MEDS ORDERED: INSULIN HUMULIN R 100 UNIT/ML 3ML SQ SCH (21:00)
[2022-06-14 22:11] VITALS: BP 97/56
[2022-06-15] MEDS: BENZONATATE 100 MG CAPSULE PO SCH ×4 (00:03→23:54)
[2022-06-15] MEDS: INSULIN HUMULIN R 100 UNIT/ML 3ML SQ SCH ×4 (00:04→16:53)
[2022-06-15 01:01] VITALS: BP 135/65
[2022-06-15] MEDS: HEPARIN 5,000 UNIT VIAL SQ SCH ×2 (03:15→16:05)
[2022-06-15 04:39] LABS: HEMATOCRIT 26.3 % (42-54); MEAN CORPUSCULAR HEMOGLOBIN 32.3 pg (27.0-33.0); MEAN CORPUSCULAR HGB CONC 34.6 g/dL (32.0-36.0); MEAN CORPUSCULAR VOLUME 93.3 fL (79-99); RED BLOOD CELL COUNT(AUTO) 2.82 MIL/uL (4.50-6.20); RED CELL DISTRIBUTION WIDTH 13.2 % (11.0-15.5); WHITE BLOOD COUNT (AUTO) 9.6 K/uL (4.8-10.8)
[2022-06-15 04:45] VITALS: BP 105/64
[2022-06-15 04:56] LABS: ALBUMIN 3.1 g/dL (3.5-5.0); CREATININE 2.2 mg/dL (0.5-1.5); MAGNESIUM 1.8 mg/dL (1.80-2.40); POTASSIUM 4.7 mmol/L (3.5-5.1); TOTAL PROTEIN, SERUM 7.6 g/dL (6.0-8.3)
[2022-06-15] MEDS: IPRATROPIUM/ALBUTEROL SULFATE 3 ML SOLUTION IH SCH ×4 (06:28→23:30)
[2022-06-15] MEDS: INSULIN GLARGINE 100 UNITS/ML 10 ML VIAL SQ SCH ×2 (06:50→21:07)
[2022-06-15 07:54] VITALS: BP 109/54
[2022-06-15] MEDS: FERROUS SULFATE 325 MG TABLET.DR PO SCH (08:37)
[2022-06-15] MEDS: ASPIRIN 81MG CHEW TAB PO SCH (08:37)
[2022-06-15] MEDS: DULOXETINE HCL 30 MG CAP PO SCH ×2 (08:38→21:06)
[2022-06-15] MEDS: AMLODIPINE 2.5 MG TAB PO SCH (08:38)
[2022-06-15] MEDS: METOPROLOL TARTRATE 25 MG TAB PO SCH ×2 (08:38→21:06)
[2022-06-15] MEDS: DOXYCYCLINE HYCLATE 100 MG TABLET PO SCH ×2 (08:39→21:06)
[2022-06-15] MEDS: CYANOCOBALAMIN (VITAMIN B-12) 1,000 MCG TABLET PO SCH (08:39)
[2022-06-15] MEDS: FAMOTIDINE 20MG VIAL IV SCH (08:43)
[2022-06-15] MEDS: FOLIC ACID 400 MCG PO SCH (08:58)
[2022-06-15] MEDS: FUROSEMIDE 20 MG TABLET PO SCH ×2 (10:14→23:54)
[2022-06-15 12:00] VITALS: BP 130/63
[2022-06-15] MEDS: CEFEPIME HCL 2 GM VIAL IVP SCH ×2 (12:17→23:54)
[2022-06-15 16:00] VITALS: BP 131/67
[2022-06-15 20:00] VITALS: BP 127/53
[2022-06-15] MEDS: ATORVASTATIN 10 MG TABLET PO SCH (21:06)
[2022-06-16] MEDS: INSULIN HUMULIN R 100 UNIT/ML 3ML SQ SCH ×4 (00:09→16:57)
[2022-06-16 00:48] VITALS: BP 115/69
[2022-06-16] MEDS: HEPARIN 5,000 UNIT VIAL SQ SCH (02:35)
[2022-06-16 04:52] VITALS: BP 96/42
[2022-06-16] MEDS: IPRATROPIUM/ALBUTEROL SULFATE 3 ML SOLUTION IH SCH ×2 (06:36→11:04)
[2022-06-16 08:00] VITALS: BP 132/68
[2022-06-16] MEDS: FOLIC ACID 400 MCG PO SCH (08:23)
[2022-06-16] MEDS ORDERED: FUROSEMIDE 20 MG TABLET PO SCH (08:30)
[2022-06-16] MEDS: AMLODIPINE 2.5 MG TAB PO SCH (10:15)
[2022-06-16] MEDS: BENZONATATE 100 MG CAPSULE PO SCH (10:15)
[2022-06-16] MEDS: CYANOCOBALAMIN (VITAMIN B-12) 1,000 MCG TABLET PO SCH (10:15)
[2022-06-16] MEDS: ASPIRIN 81MG CHEW TAB PO SCH (10:15)
[2022-06-16] MEDS: DOXYCYCLINE HYCLATE 100 MG TABLET PO SCH (10:15)
[2022-06-16] MEDS: FERROUS SULFATE 325 MG TABLET.DR PO SCH (10:15)
[2022-06-16] MEDS: METOPROLOL TARTRATE 25 MG TAB PO SCH (10:15)
[2022-06-16] MEDS: DULOXETINE HCL 30 MG CAP PO SCH (10:16)
[2022-06-16] MEDS: FAMOTIDINE 20MG VIAL IV SCH (10:16)
[2022-06-16] MEDS: INSULIN GLARGINE 100 UNITS/ML 10 ML VIAL SQ SCH (10:19)
[2022-06-16 12:00] VITALS: BP 152/73
[2022-06-16] MEDS: CEFEPIME HCL 2 GM VIAL IVP SCH (12:56)
[2022-06-16] MEDS ORDERED: BENZONATATE 100 MG CAPSULE PO SCH (15:00)
[2022-06-16 16:00] VITALS: BP 119/69
[2022-06-16] MEDS ORDERED: HEPARIN 5,000 UNIT VIAL SQ SCH (21:00)
== END 2022-06-16 18:08 | disposition home or self-care (01) | DRG 193 ==
LOC: EDH 19:21 → EDHIP 06-11 00:04 → 3AH 06-11 01:13
PROVIDERS: ADMIT Internal Medicine Infectious Disease; ATTEND Internal Medicine Infectious Disease
DX: J18.9 Pneumonia, unspecified organism (principal); J96.21 Acute and chronic respiratory failure with hypoxia; I13.0 Hypertensive heart and chronic kidney disease with heart failure and stage 1 through stage 4 chronic kidney disease, or unspecified chronic kidney disease; N17.9 Acute kidney failure, unspecified; I50.30 Unspecified diastolic (congestive) heart failure; J44.0 Chronic obstructive pulmonary disease with (acute) lower respiratory infection; Z20.822 Contact with and (suspected) exposure to COVID-19; F32.A Depression, unspecified; I25.10 Atherosclerotic heart disease of native coronary artery without angina pectoris; K21.9 Gastro-esophageal reflux disease without esophagitis; K80.20 Calculus of gallbladder without cholecystitis without obstruction; N18.32 Chronic kidney disease, stage 3b; G62.9 Polyneuropathy, unspecified; D64.9 Anemia, unspecified; E11.22 Type 2 diabetes mellitus with diabetic chronic kidney disease; E11.51 Type 2 diabetes mellitus with diabetic peripheral angiopathy without gangrene; E66.9 Obesity, unspecified; E78.00 Pure hypercholesterolemia, unspecified; E87.5 Hyperkalemia; Z82.3 Family history of stroke; Z82.49 Family history of ischemic heart disease and other diseases of the circulatory system; Z83.3 Family history of diabetes mellitus; Z87.891 Personal history of nicotine dependence; Z95.1 Presence of aortocoronary bypass graft
CPT/HCPCS: 36415; 36600; 71045; 71250; 78582; 80048; 80053; 81001; 82803; 82948; 83735; 83880; 84075; 84484; 85025; 85027; 85378; 87635; 87804; 93005; 93970; 94640; A9540; A9558; C9803; G0378; J0692; J1644; J1815; J1940; J2920; J3490

== ENCOUNTER 2023-08-12 13:46 | Emergency (ER) | payer OTHER ==
[~2023-08-12] VITALS: Ht 180.3 cm; Wt 100.2 kg
[~2023-08-12 13:46] MED LIST changes: -AMIO200T68 PO; -AMIT10TA6 PO; +DULO30CA52 PO; -FLUC200T12 PO; -FURO20TA4 PO; +INSU100V37 SQ; -LEVO-70 PO; -METF-444 PO; -OMEG-53 PO; +OMEP20CA12 PO; -TRAZ-185 PO
[2023-08-12] MEDS ORDERED: NITROGLYCERIN 0.4 MG SL TAB SL ONE (13:56)
[2023-08-12 14:11] LABS: BASOPHILS # (AUTO) 0.02 K/uL (0.00-0.20); BASOPHILS % (AUTO) 0.3 % (0.0-5.0); EOSINOPHILS # (AUTO) 0.36 K/uL (0.00-0.70); EOSINOPHILS % (AUTO) 4.6 % (0.0-8.0); HEMATOCRIT 30.4 % (42-54); IMMATURE GRANULOCYTE ABSOLUTE 0.02 K/uL (0-1); LYMPHOCYTES # (AUTO) 3.1 K/uL (1.0-4.8); LYMPHOCYTES % (AUTO) 40.2 % (21.0-51.0); MEAN CORPUSCULAR HEMOGLOBIN 31.9 pg (27.0-33.0); MEAN CORPUSCULAR HGB CONC 34.2 g/dL (32.0-36.0); MEAN CORPUSCULAR VOLUME 93.3 fL (79-99); MONOCYTES # (AUTO) 0.7 K/uL (0.1-1.0); NEUTROPHILS # (AUTO) 3.5 K/uL (1.8-7.7); NEUTROPHILS % (AUTO) 45.6 % (40.0-77.0); PLATELET COUNT (AUTO) 151 K/uL (130-400); RED BLOOD CELL COUNT(AUTO) 3.26 MIL/uL (4.50-6.20); RED CELL DISTRIBUTION WIDTH 13.1 % (11.0-15.5); WHITE BLOOD COUNT (AUTO) 7.8 K/uL (4.8-10.8)
[2023-08-12 14:40] LABS: B-TYPE NATRIURETIC PEPTIDE 107 pg/mL (0-100)
[2023-08-12 14:48] LABS: ALBUMIN 3.6 g/dL (3.5-5.0); BILIRUBIN,TOTAL 0.6 mg/dL (0.2-1.0); CREATININE 1.7 mg/dL (0.5-1.5); MAGNESIUM 1.7 mg/dL (1.80-2.40); POTASSIUM 4.1 mmol/L (3.5-5.1); TOTAL PROTEIN, SERUM 7.7 g/dL (6.0-8.3)
[2023-08-12 15:39] VITALS: BP 134/76; PULSE 62; RESP 16; O2SAT 99
== END 2023-08-12 15:56 | disposition left against medical advice (07) ==
LOC: EDH 13:46
DX: R07.89 Other chest pain (principal); I10 Essential (primary) hypertension; E11.9 Type 2 diabetes mellitus without complications; E78.00 Pure hypercholesterolemia, unspecified; Z79.82 Long term (current) use of aspirin; Z79.899 Other long term (current) drug therapy; Z90.49 Acquired absence of other specified parts of digestive tract; Z95.1 Presence of aortocoronary bypass graft; Z98.890 Other specified postprocedural states
CPT/HCPCS: 36415; 71045; 80053; 83735; 83880; 84484; 85025; 93005

== ENCOUNTER 2025-08-16 21:39 | Inpatient (IN) | payer OTHER ==
[~2025-08-16] VITALS: Ht 180.3 cm; Wt 93.0 kg
[~2025-08-16 21:39] MED LIST changes: -ASPI-1197 PO; -CYAN-35 PO; +CYAN-52 PO; +FERR-72 PO; +FISH1CAP27 PO; +FOLI0.8C PO; -FOLIC PO; -IRON PO; -LISI10TA24 PO; +LISI20TA24 PO; -PRAV40TA3 PO; +ROSU40TA88 PO
--- NOTE | 2025-08-16 21:49 | ERN ---
ED Note History of Present Illness Stated Complaint: SOB, GBW, CONSTIPATION Chief Complaint: Shortness of Breath Time Seen by MD: 21:42 Dictation: This is a 70-year-old obese male who is chronically ill with multiple medical problems presented to the emergency room with worsening shortness of breath severe fatigue and generalized body weakness. He has had issues with constipation and is unable to defecate. His last bowel movement was 3 days ago. He denied any cough sputum or hemoptysis. He is extremely short of breath with any movement or activity. No nausea vomitings diarrhea. Temperature 98.2 pulse 102 respirations 20 blood pressure 110/68 with a pulse oximetry of 99% on room air Patient has chronic medical problems include diabetes mellitus, hypertension, hypercholesterolemia, chronic kidney disease, chronic anemia and pancytopenia, coronary artery disease status post coronary artery bypass surgery I am unable to retrieve the bone marrow biopsy results. Allergies: Uncoded Allergies: NKA (Allergy, Unknown, unknown, 12/12/17) Home Meds Active Scripts Cyanocobalamin (Vitamin B-12) (Vitamin B-12) 1,000 Mcg Tablet, 1000 MCG PO DAILY, #30 TAB Prov:DAVID QUINONES MD 05/21/25 Reported Medications Insulin Degludec (Tresiba) 100 Unit/Ml Vial, 30 UNIT SQ DAILY, VIAL 05/17/25 Insulin NPL/Insulin Lispro (Humalog Mix 75-25 Kwikpen) 100 Unit/Ml (75-25) Insuln.pen, 30 UNITS SQ BID, SYRINGE 05/17/25 Ferrous Sulfate (Ferrous Sulfate) 325 Mg (65 Mg Iron) Tablet, 1 TAB PO DAILY for 30 Days, #30 TAB 0 Refills 05/15/25 Folic Acid (Folic Acid) 0.8 Mg Capsule, 1 CAP PO DAILY for 30 Days, #30 CAP 0 Refills 05/15/25 Eldridge-3 Fatty Acids/Fish Oil (Eldridge 3 1,000 mg Softgel) 300 Mg-1,000 Mg Capsule, 1 CAP PO DAILY for 30 Days, #90 CAP 0 Refills WITH MEALS 05/15/25 Omeprazole (Omeprazole) 20 Mg Capsule.dr, 1 CAP PO DAILY for 30 Days, #30 CAP 0 Refills 05/15/25 Metoprolol Tartrate (Metoprolol Tartrate) 25 Mg Tablet, 1 TAB PO DAILY for 30 Days, #60 TAB 0 Refills 05/15/25 Duloxetine HCl (Duloxetine HCl) 30 Mg Capsule.dr, 1 CAP PO DAILY for 30 Days, #30 CAP 0 Refills 05/15/25 Rosuvastatin Calcium (Rosuvastatin Calcium) 40 Mg Tablet, 1 TAB PO DAILY for high cholesterol for 30 Days, #30 TAB 0 Refills 05/15/25 Lisinopril (Lisinopril) 20 Mg Tablet, 1 TAB PO DAILY for 30 Days, #30 TAB 0 Refills 05/15/25 Past Medical History Past Medical History: Anemia, CAD, Diabetes-Type II, High Cholesterol, H ypertension, SC, Renal Disese, Other Surgical History: Appendectomy, CABG Surgical History Other: INGUINAL HERNIA SX Social History: Drugs (History of marijuana), Lives with family RN Note Reviewed/Agreed w/PFSH: Yes Review of System Dictation Constitutional: Negative for fever,chills, and weight loss Eyes: Negative for injury, pain,redness, and discharge ENT: Negative for injury,pain or swelling Cardiovascular: Negative for chest pain, palpitations, and positive for mild edema Respiratory: Positive for shortness of breath, denied cough, and wheezing, Abdomen/GI: Negative for abdominal pain, nausea, vomiting, diarrhea, and positive for constipation Back: Negative for injury and pain : Negative for injury, bleeding and discharge MS/Extremity: Negative for injury and deformity Skin: Negative for rash, and discoloration Neuro: Negative for headache, weakness, numbness, tingling, and seizure Psych: Negative for suicide ideation, homicidal ideation, and hallucinations Initial Vital Sign VS Vital Signs Date Time Temp Pulse Resp B/P (MAP) Pulse Ox O2 Delivery O2 Flow Rate FiO2 08/16/25 21:43 98.2 102 20 110/68 99 Nasal Cannula 2.0 08/16/25 22:22 24 Physical Exam Dictation General: awake, alert, NAD obese male, chronically ill-appearing, extremely short of breath with any movement Head/Face: Normocephalic, atraumatic pale Eyes: PERRL, EOMI, vision at baseline ENT: oral cavity clear, TMs clear, no signs of infection Neck: Trachea midline, supple, no nuchal rigidity Cardiovascular: RRR, normal S1/S2, No MRGs, no JVD Respiratory: CTAB, no respiratory distress, No rales or wheezes Abdomen: Soft, non-tender, non-distended, normal bowel sounds, no guarding or rebound. Skin: Warm, dry, normal turgor, no rash MS/Extremity: Pulses equal, no cyanosis, neurovascular intact, FROM Neuro: COAx4, GCS 15, strength 5/5, CN 2-12 intact, normal cerebellar exam, normal gait, Psych: Normal behavior, mood, and affect normal Extremities-1+ edema without any palpable cords, Homans sign is negative Results (Laboratory/Radiology) Laboratory/Radiology Laboratory Tests Test 08/16/25 21:52 08/16/25 23:34 White Blood Count 3.7 K/uL (4.8-10.8) L Red Blood Count 3.06 MIL/uL (4.50-6.20) L Hemoglobin 9.3 g/dL (14.0-18.0) L Hematocrit 27.3 % (42-54) L Mean Corpuscular Volume 89.2 fL (79-99) Mean Corpuscular Hemoglobin 30.4 pg (27.0-33.0) Mean Corpuscular Hemoglobin Concent 34.1 g/dL (32.0-36.0) Red Cell Distribution Width 17.2 % (11.0-15.5) H Platelet Count 40 K/uL (130-400) L Mean Platelet Volume 10.7 fL (7.5-10.5) H Immature Granulocyte % (Auto) 39.9 % (0-1) H Neutrophils (%) (Auto) 30.2 % (40.0-77.0) L Lymphocytes (%) (Auto) 14.8 % (21.0-51.0) L Monocytes (%) (Auto) 14.8 % (3.0-13.0) H Eosinophils (%) (Auto) 0.0 % (0.0-8.0) Basophils (%) (Auto) 0.3 % (0.0-5.0) Neutrophils # (Auto) 1.1 K/uL (1.8-7.7) L Lymphocytes # (Auto) 0.5 K/uL (1.0-4.8) L Monocytes # (Auto) 0.5 K/uL (0.1-1.0) Eosinophils # (Auto) 0.00 K/uL (0.00-0.70) Basophils # (Auto) 0.01 K/uL (0.00-0.20) Absolute Immature Granulocyte (auto 1.46 K/uL (0-1) H Segmented Neutrophils % 39 % (40-70) L Band Neutrophils % 10 % (0-2) H Lymphocytes % (Manual) 24 % (22-44) Monocytes % (Manual) 16 % (2-9) H Metamyelocytes % 8 % (0-0) H Other Cells % 3 (0-0) H Nucleated Red Blood Cells 2.7 % (0.0-0.19) H Differential Comment MANUAL DIFFERENTIAL White Cell Morphology Comment SMUDGE CELLS 1+ Platelet Morphology Comment See comments Red Blood Cell Morphology See comments Sodium Level 141 mmol/L (136-145) Potassium Level 5.0 mmol/L (3.5-5.1) Chloride Level 106 mmol/L (101-111) Carbon Dioxide Level 16 mmol/L (21-32) L Blood Urea Nitrogen 59 mg/dL (7-18) H Creatinine 4.1 mg/dL (0.5-1.3) H Glomerular Filtration Rate Calc 15 mL/min (>90) Random Glucose 130 mg/dL (70-105) H Total Calcium 7.8 mg/dL (8.5-10.1) L Total Creatine Kinase 387 U/L (21-232) #H Troponin I High Sensitivity 120.9 ng/L (4-75) *H B-Type Natriuretic Peptide 448 pg/mL (0-100) H Acetaminophen Level < 1 mcg/mL (10-29) L Serum Alcohol < 3 mg/dL (0-10) Whole Blood Ketones Quantitative 0.6 mmol/L (0.0-0.6) Lactic Acid Level 5.8 mmol/L (0.8-2.5) H Labs Reviewed?: Yes Ultrasound Comment: Echocardiogram Conclusion The left ventricle is normal size. Mild concentric left ventricular hypertrophy. LVEF is 60-65%. The left ventricular diastolic function is normal. The right ventricle is normal size. The right ventricular systolic function is normal. The left atrium size is normal. The right atrium size is normal. No valvular pathology. There is no pericardial effusion. DICTATED BY: FIDEL GONZALEZ MD DATE: 05/17/25 1011 ELECTRONICALLY SIGNED BY: FIDEL GONZALEZ MD DATE: 05/17/25 1340 ED Course ED Course Orders Procedure Category Date Status Time Cardiac Panel LAB 08/16/25 Complete 21:48 Cbc With Differential LAB 08/16/25 In Process 21:48 Basic Metabolic Panel LAB 08/16/25 Complete 21:48 Urinalysis Profile LAB 08/16/25 In Process 21:48 Chest 1vw RAD 08/16/25 Resulted 21:48 12 Lead Ekg Tracing- EKG 08/16/25 Complete Technical 21:48 B-Type Natriuretic LAB 08/16/25 In Process Peptide 21:48 Manual Differential LAB 08/16/25 In Process 21:52 Lactic Acid LAB 08/16/25 Complete 22:25 Ketone Blood LAB 08/16/25 Complete Quantitative 22:25 0.9%Nacl 1000ml (Ns PHA 08/16/25 Complete 1000ml) 22:30 Acetaminophen LAB 08/16/25 Complete 21:52 Alcohol, Blood LAB 08/16/25 Complete 21:52 Admit Orders ADM 08/16/25 Transmitted 23:53 Edm Admit Bridge Order ADM 08/16/25 Transmitted 23:58 Blood Cult MARIBELL 08/17/25 Logged 00:07 Procalcitonin LAB 08/17/25 Logged 00:07 Current Medications Medications (Trade) Dose Ordered Sig/Chinmay Route PRN Reason Start Time Stop Time Status Last Admin Dose Admin Sodium Chloride 1,000 ml @ 0 mls/hr ONCE ONCE IV 08/16/25 22:30 08/16/25 22:32 DC 08/16/25 22:35 Vital Signs Date Time Temp Pulse Resp B/P (MAP) Pulse Ox O2 Delivery O2 Flow Rate FiO2 08/17/25 00:03 99.1 95 18 130/80 97 Nasal Cannula* 1 24 08/16/25 23:28 54 16 110/50 97 Nasal Cannula* 1 24 08/16/25 22:22 98 18 11 98 Nasal Cannula* 1 24 08/16/25 21:43 98.2 102 20 110/68 99 Nasal Cannula 2.0 We will perform diagnostic labs, advanced imaging and administer medications according to the patient's complaint. Once the results are available, will review and personally interpreted the labs to rule out any acute life- threatening emergency the trach require immediate intervention and treatment. I will then re-evaluate the patient after treatment and diagnostic exams have return to determine whether the patient requires any further testing, can safely be discharged home or need further admission to hospital for additional treatment and evaluation. 12:00 a.m. patient accepted by Jose Odonnell, mid-level provider for [facility] hospitalist group for admission and further management. Medical Decision Making MDM Differential diagnosis: Congestive heart failure, COPD exacerbation, worsening anemia, severe deconditioning, pneumonia, pancytopenia could be related to myelodysplastic syndrome, multiple myeloma or other hematological malignancy, iron deficiency anemia This is a 70-year-old obese male who is chronically ill with multiple medical p roblems presented to the emergency room with worsening shortness of breath severe fatigue and generalized body weakness. He has had issues with constipation and is unable to defecate. His last bowel movement was 3 days ago. He denied any cough sputum or hemoptysis. He is extremely short of breath with any movement or activity. No nausea vomitings diarrhea. Temperature 98.2 pulse 102 respirations 20 blood pressure 110/68 with a pulse oximetry of 99% on room air Patient has chronic medical problems include diabetes mellitus, hypertension, hypercholesterolemia, chronic kidney disease, chronic anemia and pancytopenia, coronary artery disease status post coronary artery bypass surgery I am unable to retrieve the bone marrow biopsy results. 10:24 p.m. troponins verbally reported 120.9. CBC shows a white count of 3.7 hemoglobin 9.3 platelets 40. BNP 7 shows a bicarbonate of 16 BUN and creatinine are 59 and 4.1 with a glucose of 130. Please note that his BUN and creatinine were 20 and 1.5 in May 2025. Total CK is 387. 11:00 p.m. chest x-ray showed cardiomegaly atelectatic changes in the left base, brain natriuretic peptide for 448. Patient attempted to go to the restroom and became extremely short of breath. I recommended admission to the hospital for worsening respiratory distress, worsening renal insufficiency lactic acidosis unclear reasons at this time. Requested blood cultures to see if there is any source of sepsis. Patient and spouse are agreeable Rationale: Tests considered and ordered secondary to shared decision making include: labs, ECG and radiology Previous outside records reviewed: Old ER visits. Risk of complication and/or morbidity or mortality of patient management: None Medications-Per medication reconciliation Need for hospitalization: Patient does meet criteria for hospitalization. Need for emergency major/minor surgery: No There are no social concerns with this patient. Prescription drug management Prescriptions will include symptomatic care Patient's prior external medical records from other ER visits were reviewed by me as indicated. Prior testing and results from previous visits were reviewed. Prior tests were taken into account with medical decision making and resource utilization, independent historian/historians were used to obtain complete medical history. I independently interpreted the test that were performed, results were reviewed by me and considered findings on radiology if ordered. Medical management and examination interpretation discussions were had by me with other qualified healthcare professionals as indicated for the patient's care. Problem List Problem List: (1) Acute respiratory distress (2) Increased anion gap metabolic acidosis (3) Lactic acidosis (4) Pancytopenia (5) Acute on chronic renal insufficiency (6) Elevated troponin I level DX & DISP Disposition: Inpatient Decision to Admit Time: 22:57 Departure Impression: Primary Impression: Acute respiratory distress Additional Impressions: Acute on chronic renal insufficiency, Pancytopenia, Increased anion gap metabolic acidosis, Elevated troponin I level, Lactic acidosis Condition: Stable Additional Instructions: Patient was informed of all the diagnostic labs and procedures conducted in the emergency room today and demonstrated understanding of the results. I personally reviewed and interpreted all the diagnostic exams performed in the ER today. The patient will be admitted to the hospital for further treatment and evaluation. Disposition-admit to facility Condition-stable/guarded Course-uncertain at this time Pain status-decreased Assessment-exam unchanged Admission Certification- I certify that the patients status is appropriate and is based on my best clinical judgment and the patient's condition as documented in the medical records Referrals: ONESIMO GARBER (PCP) KRISTINE MCCULLOUGH MD Aug 16, 2025 21:49
--- NOTE | 2025-08-16 21:59 | EKG ---
[facility] Test Date: 2025-08-16 Test Time: 21:54:40 Pat Name: GONZALO ESPINAL Department: [facility] Room: 207 Gender: M Licensed Vocational Nurse: [id number] : 1955 Requested By: KRISTINE MCCULLOUGH Order Number: [id number] Reading MD: Stu Gutierrez Measurements Intervals [place] Rate: 99 P: 81 NV: 145 QRS: 12 QRSD: 88 T: 189 QT: 315 QTc: 408 Interpretive Statements Sinus tachycardia Atrial premature complexes Abnormal T, consider ischemia, lateral leads Electronically Signed On 08-17-2025 16:10:42 CDT by Stu Gutierrez Please click the below link to view image of tracing.
[2025-08-16 22:04] LABS: IMMATURE GRANULOCYTE ABSOLUTE 1.46 K/uL (0-1); NUCLEATED RED BLOOD CELLS 2.7 % (0.0-0.19); PLATELET COUNT (AUTO) 40 K/uL (130-400); RED BLOOD CELL COUNT(AUTO) 3.06 MIL/uL (4.50-6.20); RED CELL DISTRIBUTION WIDTH 17.2 % (11.0-15.5); WHITE BLOOD COUNT (AUTO) 3.7 K/uL (4.8-10.8)
[2025-08-16 22:13] LABS: CREATININE 4.1 mg/dL (0.5-1.3); GLOMERULAR FILTR. RATE CALC 15.0 mL/min (>90); GLUCOSE,RANDOM 130.0 mg/dL (70-105); SODIUM SERUM 141.0 mmol/L (136-145); UREA NITROGEN, BLOOD 59.0 mg/dL (7-18)
[2025-08-16 22:21] LABS: CREATINE KINASE, TOTAL 387.0 U/L (21-232)
[2025-08-16] MEDS: 0.9%NACL 1000ML 1,000 ML IV ONE (22:35)
[2025-08-16 22:51] LABS: BAND NEUTROPHILS % (MANUAL) 10 % (0-2); LYMPHOCYTES % (MANUAL) 24 % (22-44); MAN.DIFF COMMENT-IMPRESSION MANUAL DIFFERENTIAL; METAMYELOCYTES % 8 % (0-0); MONOCYTES % (MANUAL) 16 % (2-9); OTHER CELLS,MANUAL % 3 (0-0); SEGMENTED NEUTROPHILS % 39 % (40-70)
[2025-08-16 22:52] LABS: WBC MORPHOLOGY SMUDGE CELLS 1+
[2025-08-16 22:53] LABS: ALCOHOL, BLOOD < 3 mg/dL (0-10)
--- NOTE | 2025-08-16 23:29 | HMCIMG ---
EXAM: CR Chest, 1 view. CLINICAL HISTORY: Shortness of breath. COMPARISON: CR Chest. 05/15/2025. FINDINGS: The lungs show no infiltration or other acute findings. Stable mild scarring versus atelectasis in the left lower zone. No pneumothorax. Blunting of the left costophrenic angle. The cardio mediastinal silhouette is within normal limits. No acute osseous abnormality. IMPRESSION: Redemonstrated is a suspected mild left pleural effusion. Stable mild scarring versus atelectasis in the left lower zone. /[place]
--- NOTE | 2025-08-16 23:54 | HP ---
History of Present Illness History of Present Illness Ms. Cavanaugh is a 70-year-old female that was seen and examined today on 08/17/25. Patient is a good historian of personal health. Patient states that he came to the emergency department with a chief complaint of shortness of breath. Onset was one week ago. Location is to lungs. Duration is constant. There was no alleviating factors. Symptoms are aggravated with changing positions from sitting to standing and even ambulating short distances. Patient reports associated constipation and cough. Today in the emergency department WBCs 3.7, RBCs 3.6, platelets 40, creatinine 4.1, BUN 54, lactic acid 5.8, troponin 120, BNP 448, procalcitonin 2.26, chest x-ray shows left pleural effusion. Emergency room physician recommended patient be admitted with a diagnosis of sepsis. Patient's heart rate was 102, together with WBCs of 3.7 lactic acid of 5.8 patient met clinical sepsis criteria. Past Medical History Patient History: Chronic obstructive lung disease MOTHER Family history: Cardiovascular disease MOTHER FATHER BROTHER BROTHER BROTHER Family history: Diabetes mellitus BROTHER BROTHER Stroke BROTHER Sudden MOTHER FATHER PAST MEDICAL HISTORY: [ Coronary artery disease, diabetes, hypertension, hyperlipidemia, chronic kidney disease, anemia ] PAST SURGICAL HISTORY: [ CABG, appendectomy, inguinal hernia repair, right hand surgery bilateral isadora t surgery] PAST SOCIAL HISTORY: [ patient lives with . Patient denies alcohol, cigarette and recreational drug use that is however patient is positive marijuana in urine toxicology CD3 ] Review of Systems General: No Fever, No Chills, No Night Sweats, No Fatigue, No Malaise, No Appetite, No Other HEENT: No Head Aches, No Visual Changes, No Eye Pain, No Ear Pain, No Dysphasia, No Sinus Congestion, No Post Nasal Drip, No Sore Throat, No Other Pulmonary: Dyspnea, Cough; No Pleuritic Chest Pain, No Other Cardiovascular: No: Chest Pain, Palpitations, Orthopnea, Paroxysmal Noc. Dyspnea, Edema, Lt Headedness, Other Gastrointestinal: Constipation; No: Nausea, Vomiting, Abdominal Pain, Diarrhea, Melena, Hematochezia, Other Genitourinary: No Dysuria, No Frequency, No Incontinence, No Hematuria; Retention; No Other Musculoskeletal: No: other, neck pain, shoulder pain, arm pain, back pain, hand pain, leg pain, foot pain Skin: No Urticaria, No Rash, No Other Neurological: No: Weakness, Numbness, Incoordination, Change in speech, Confusion, Seizures, Other Allergies: Uncoded Allergies: NKA (Allergy, Unknown, unknown, 12/12/17) Scheduled Cyanocobalamin (Vitamin B-12) (Vitamin B-12), 1,000 MCG PO DAILY Duloxetine HCl (Duloxetine HCl), 1 CAP PO DAILY, (Reported) Ferrous Sulfate (Ferrous Sulfate), 1 TAB PO DAILY, (Reported) Folic Acid (Folic Acid), 1 CAP PO DAILY, (Reported) Insulin Degludec (Tresiba), 30 UNIT SQ DAILY, (Reported) Insulin NPL/Insulin Lispro (Humalog Mix 75-25 Kwikpen), 30 UNITS SQ BID, (Reported) Lisinopril (Lisinopril), 1 TAB PO DAILY, (Reported) Metoprolol Tartrate (Metoprolol Tartrate), 1 TAB PO DAILY, (Reported) Olin-3 Fatty Acids/Fish Oil (Olin 3 1,000 mg Softgel), 1 CAP PO DAILY, (Reported) Omeprazole (Omeprazole), 1 CAP PO DAILY, (Reported) Rosuvastatin Calcium (Rosuvastatin Calcium), 1 TAB PO DAILY, (Reported) Exam Vital Signs Vital Signs Date Time Temp Pulse Resp B/P (MAP) Pulse Ox O2 Delivery O2 Flow Rate FiO2 08/16/25 23:28 54 16 110/50 97 Nasal Cannula* 1 24 08/16/25 21:43 98.2 General Appearance: Alert, Oriented X3, Cooperative, moderate distress HEENT: Atraumatic, EOMI Respiratory: Other (Left lower lobe rales, diminished air entry to bilateral lower lobes) Cardiovascular: Normal S1, Normal S2, Other (Tachycardia) Abdominal: Normal bowel sounds, Soft, No tenderness Extremities: No edema Neuro: Normal speech, Strength at 5/5 X4 ext, Sensation intact, Cranial nerves 3-12 NL Psych/Mental Status: Mental status NL, Mood NL, Thoughts/Content NL Assessment/Plan ASSESSMENT: [ Sepsis, POA Lactic acidosis, POA Pancytopenia, POA PAULETTE, POA, 05/21/2025, creatinine 1.5, today it is 4.1 elevated troponin, poa CAD Diabetes mellitius type2 Hypertension Hyperlipidemia Anemia] PLAN: [ Admit patient to medical floor as inpatient status. Place patient on telemetry monitoring. Decided against full fluid resuscitation 30 mL/kg given patient's current left pleural effusion Patient received 1 L of 0.9% NS IV in the emergency department. Empiric antibiotic therapy with Zosyn. Reviewed patient's procalcitonin which was elevated at 2.26 Repeat lactic acid in a.m., initial lactic acid is 5.8 Check blood culture, follow up with the results Check urinalysis, follow up with the results Reviewed patient's chest x-ray which shows left pleural effusion Check sputum culture, follow up with the results DuoNebs every 6 hours Pulmicort twice daily Supportive treatment with guaifenesin, Tylenol Consult pulmonology Service for evaluation and further recommendations IV fluid maintenance therapy lactated Ringer's at 75 mL/HR Discontinue IV fluid maintenance therapy if recommended by nephrology service Calculate FENA Check urine sodium, creatinine, osmolality Avoid nephrotoxic agents when possible Renally dose all medications when possible Consult Nephrology Service, Dr. Vincent for evaluation and further recommend ations Monitor patient's labs. Weight patient daily. Monitor intake and output. Administer aspirin 162 mg by mouth times 1 dose Continue aspirin 81 mg by mouth once daily Nitroglycerin sublingual 0.4 mg as needed for chest pain every 5 minutes, max 3 doses, hold for systolic blood pressure less than 100 mmHg. Trend troponin every 6 hours x 3 sets Supplemental oxygen to maintain O2 saturation greater than 92% Consult cardiology if any elevation in troponin or troponin uptrending, or if patient deemed to need stress test by daytime rouding service. Check hemoglobin A1c in a.m. Renal nondialysis diet Check glucometer a.c. and HS Humulin R sliding scale Consider resuming home medications once they have been reconciled At time of admission home medications has been reconciled For now: Atorvastatin 40 mg by mouth once daily. Hydralazine 10 mg IV every 4 hours for systolic blood pressure greater than 160 mmHg Consult hematology service, Dr. Mullins According to patient had two bone marrow biopsies but they have not been able to get the results. Most recent bone marrow biopsy was in May of 2025. GI prophylaxis, Protonix DVT prophylaxis, Ric's and SCDs avoid anticoagulation at this time given patient's current thrombocytopenia ADVANCED CARE PLANNING 1. Which of the following were discussed? Hospice Care - Yes Therapeutic options - yes Advance Directives - Yes - patient states he does not have any advance directives in place at this time, however his , Maria Isabel can make decisions for him if he becomes unable. Other discussions - patient wishes to remain a full code at this time 2. Discussed with who? Patient 3. Voluntary nature of this service was explained to the patient? Yes 4. Amount of time spent - ___16 minutes____ 5. Reviewed by Physician? (if this service was performed by NPP) Yes This document was generated in part using voice recognition software, occasional wrong word or sound alike substitutions may have occurred due to the inherent limitations of voice recognition software. Read the chart carefully and recognize using context, where the substitutions have occurred. Although every effort was made to edit the content, women nurse and typing errors may occur ATTESTATION BY PHYSICIAN I have seen and examined the patient. I reviewed the documentation, medical decision making, and treatment plan as noted by the mid-level provider above. I agree with the findings and plan of care. ] NICKOLAS BERRY [facility] Aug 16, 2025 23:54
[2025-08-17] VITALS (33 sets, daily range): BP systolic 0–163; BP diastolic 0–97; PULSE 0–120; RESP 0–49; TEMP 97.4–100.9; O2SAT 92–99
[2025-08-17] MEDS ORDERED: LACTULOSE 20 GM/30 ML UDCUP PO PRN ×2 (01:30→09:30)
[2025-08-17] MEDS ORDERED: NITROGLYCERIN 0.4 MG SL TAB SL PRN (01:30)
[2025-08-17] MEDS: ASPIRIN 81MG CHEW TAB PO ONE (01:58)
[2025-08-17] MEDS: ZOSYN 3.375GM +NS 50ML IV SCH (01:58)
--- NOTE | 2025-08-17 02:15 | NUR ---
pt complained of not being able to urinate and no bowel movement from 08/12/25 ayah flores made aware bladder scanned 763 ml orders for in and out cath enama x1 , 850out of bladder enema given small results zosyn iv given 3.375mg.
[2025-08-17 02:46] LABS: CREATININE,URINE RANDOM 42.28 mg/dL (30-135)
[2025-08-17 02:50] LABS: APPEARANCE,URINE CLEAR (CLEAR); GLUCOSE, URINE (UA) >=1000 mg/dL (NEGATIVE); LEUKOCYTE ESTERASE ,URINE NEGATIVE Leu/uL (NEGATIVE); NITRATE,URINE NEGATIVE (NEGATIVE); OCCULT BLOOD,URINE MODERATE (NEGATIVE)
[2025-08-17 02:51] LABS: ADD UA MICROSCOPIC YES; SQUAMOUS EPITHELIAL CELL,UR RARE /HPF (0-2)
--- NOTE | 2025-08-17 02:55 | NUR ---
benchmark paged benchmark for consult. pending call back.
--- NOTE | 2025-08-17 02:58 | NUR ---
home meds asked patient's about home medications. she will bring them in the morning.
--- NOTE | 2025-08-17 03:07 | NUR ---
BENCHMARK PAGED EARL HERNÁNDEZ AND HE IS AWARE OF THE CONSULT NOW.
[2025-08-17] MEDS: LACTATED RINGERS 1000ML 1,000 ML IV SCH (03:13)
[2025-08-17] MEDS ORDERED: PHARMACY COMMUNICATION MISC SCH (03:30)
[2025-08-17 06:13] LABS: IMMATURE GRANULOCYTE ABSOLUTE 0.99 K/uL (0-1); NUCLEATED RED BLOOD CELLS 3.8 % (0.0-0.19); PLATELET COUNT (AUTO) 29 K/uL (130-400); RED BLOOD CELL COUNT(AUTO) 2.78 MIL/uL (4.50-6.20); RED CELL DISTRIBUTION WIDTH 17.0 % (11.0-15.5); WHITE BLOOD COUNT (AUTO) 1.8 K/uL (4.8-10.8)
[2025-08-17 06:27] LABS: CREATININE 4.6 mg/dL (0.5-1.3); GLOMERULAR FILTR. RATE CALC 13.0 mL/min (>90); GLUCOSE,RANDOM 103.0 mg/dL (70-105); PHOSPHORUS 5.4 mg/dL (2.5-4.9); SODIUM SERUM 143.0 mmol/L (136-145); UREA NITROGEN, BLOOD 63.0 mg/dL (7-18)
[2025-08-17] MEDS: BUDESONIDE 0.5 MG/2 ML INH IH SCH (06:30)
[2025-08-17] MEDS: SODIUM CHLORIDE 3% FOR INHALATION 4 ML/AMP VIAL.NEB IH ONE ×3 (06:31→18:51)
--- NOTE | 2025-08-17 07:52 | NUR ---
RAPID RESPONSE PATIENT WAS SHOWING S/S OF ABDOMINAL BREATHING AND RESPIRATORY DISTRESS. ANDRÉS ROBYN WAS MADE AWARE. ORDERED STAT EKG, ABG AND RAPID RESPONSE WAS CALLED. VERBALIZED TO NOTIFY CRITICAL TEAM. CARMEN DUARTE WAS CALLED ORDERED TO TRANSFER PATIENT TO PCCU, LABS WERE ORDERED FOR THE PATIENT. VS: 116/56, 100% ON NON REBREATHER, TEMP 99.5, 64 AFIB.
[2025-08-17 08:08] LABS: ABG BASE EXCESS -10.9 mmol/L (-2.0-3.0); ABG HCO3 11.2 mmol/L (21.0-28.0); ABG OXYGEN SATURATION 99.6 % (94.0-98.0); ABG PCO2 19 mmHg (35-48); ABG PH 7.392 (7.350-7.450); DEVICE COMMENT LB RAPIDRESP; PO2, ARTERIAL BG 251.1 mmHg (83.0-108.0); TEMPERATURE, CELSIUS BG 37.0 CELSIUS (35.5-37.0); VENT MODE, BG NRM (ROOM AIR)
[2025-08-17 08:25] LABS: NUCLEATED RED BLOOD CELLS 3.3 % (0.0-0.19); PLATELET COUNT (AUTO) 29 K/uL (130-400); RED BLOOD CELL COUNT(AUTO) 2.85 MIL/uL (4.50-6.20); RED CELL DISTRIBUTION WIDTH 17.2 % (11.0-15.5); WHITE BLOOD COUNT (AUTO) 1.8 K/uL (4.8-10.8)
[2025-08-17 08:31] LABS: INR 1.15 (0.85-1.15)
--- NOTE | 2025-08-17 08:39 | NUR ---
rapid response As I was passing by, I saw the patient in room 430 having shortness of breath, pale, cold, and sating in the 60-70's on 3 liters of oxygen. He was hard to arouse. I placed him on a nonrebreather 15 liters 100% and called Patricia, the Respiratory therapist since she was nearby. She came to the room as well as Jason Hillman Rn. I called a rapid response at 07:52. Anjum and Joann started paging hospitalist and benchmark. Sole Kay ordered to transfer the patient to PCCU. Oumou, housekeeping cleaner, at bedside and made aware. She was working to get a bed as soon as possible. Braxton, ICU nurse present at bedside as well. ABG's were drawn, EKG was done, Respiratory therapist made aware of need for a bipap. Supply Chain Assistant morales labs for cbc, cmp, lactic acid, ammonia, troponin. Patient's vital signs were 100/80 blood pressure, heart rate 60, temperature 99.5, sating 70% on 3 liters nasal cannula. At 07:52, blood pressure was 116/56, heart rate 64, 100% nonrebreather, temperature 99.5. His blood sugar was 98. Patient had agreed to DNR status and the signed for him before she left home. The patient is now DNR status. Jason Hillman took the patient to room 207 while Joann gave report to ASHLEIGH Peraza. Patient's , Mayte, was notified.
[2025-08-17 08:44] LABS: CREATININE 4.8 mg/dL (0.5-1.3); GLOMERULAR FILTR. RATE CALC 12.0 mL/min (>90); GLUCOSE,RANDOM 106.0 mg/dL (70-105); SODIUM SERUM 141.0 mmol/L (136-145); UREA NITROGEN, BLOOD 68.0 mg/dL (7-18)
[2025-08-17] MEDS: SODIUM BICARB 50MEQ 50ML VIAL IV ONE ×2 (08:48→15:56)
[2025-08-17] MEDS: 0.9% NACL 500ML IV.SOLN 500 ML IV ONE (08:49)
[2025-08-17 08:51] LABS: ASPARTATE AMINOTRANSFERASE 283.0 U/L (10-37); TOTAL PROTEIN, SERUM 5.7 g/dL (6.0-8.3)
[2025-08-17 09:00] LABS: IMMATURE GRANULOCYTE ABSOLUTE 0.01 K/uL (0-1)
[2025-08-17] MEDS: ASPIRIN 81 MG EC TAB PO SCH (09:00)
--- NOTE | 2025-08-17 09:00 | NUR ---
BLADDER SCAN UNREMARKABLE. LESS THAN 3CC
--- NOTE | 2025-08-17 09:16 | CONS ---
[facility] CONSULTATION NOTE Date Patient Seen: Aug 17, 2025 Time of Visit: 09:15 Supervising Physician: Saad Hernandez MD Reason for Consultation: [facility] Primary Care Physician: Khadijah Wiley MD Outpatient Specialists: Hematology Inpatient Consults: Dr Gutierrez, DR Vincent, Dr Piedra, Harpreet EPSTEIN PROBLEM LIST: Acute hypoxemic respiratory failure, POA Severe Sepsis with mild, POA Compensated metabolic acidosis, POA Small left pleural effusion not amenable for thoracentesis Lactic acidosis, POA Pancytopenia NSTEMI likely type 2 from supply demand mismatch POA Severe neutropenia (ANC 327) Advanced PAULETTE on CKD CAD with history of CABG Type 2 diabetes mellitus Hypertension Hyperlipidemia Comorbidities: 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 Presented for a complain of shortness of breaths for the last week to the ED on 08/16/25. He has been admitted to the medical floor for sepsis, lactic acidosis and pancytopenia. This morning we are called by the primary nurse that patient had an episode of increasing shortness for breath, confusion and agitation. To PCCU and he was found ABG to be on acute metabolic acidosis, lactic acid trending up to 4 0.4-5.0. Ammonia 54. Albumin of 1.9. CO2 16. As per RN patient one has signed for DNR status. On chest x-ray redemonstrated is suspected mild left pleural effusion. On point of care ultrasound 90 enough fluid for amenable thoracentesis. On exam patient is awake alert follows simple commands. Mildly confused. He complains of abdominal pain and tenderness. Abdomen is soft sounds hypoactive. Point of care of bladder ultrasound shows no urinary retention at this time. As per RN 900 mL of urine output after straight catheterization done overnight. Patient was taken to CT abdomen and pelvis and CT chest but patient did not tolerate laying flat. Abdominal ultrasound and chest x-ray ordered instead. PAST MEDICAL HX: see above PAST SURGICAL HX: noncontributory SOCIAL HISTORY: No tobacco, ETOH, or illicit drug use Uncoded Allergies: NKA (Allergy, Unknown, unknown, 12/12/17) REVIEW OF SYSTEMS: 12 point ROS reviewed with patient. Pertinent positives mentioned above. Otherwise negative. PHYSICAL EXAM: GENERAL: alert, weak, awake oriented x 3 HEENT: EOMI, Sclera non icteric, moist mucosa NECK: Supple, no JVD, trachea midline LUNGS: Clear breath sounds bilaterally. No wheezes HEART: Regular rate and rhythm. Normal S1 and S2, without murmurs ABD: Abdomen soft, nontender. Bowel sounds present EXT: No clubbing cyanosis or edema NEURO: Alert and oriented to person, follows commands Vital Signs (last 8hr) Date Time Temp Pulse Resp B/P (MAP) Pulse Ox O2 Delivery O2 Flow Rate FiO2 08/17/25 06:38 102 22 N/Cannula Low lpm 3.0 32 08/17/25 06:32 99 22 08/17/25 04:07 98.4 95 20 127/60 99 Nasal Cannula 08/17/25 03:34 94 20 N/Cannula Low lpm 2.0 28 08/17/25 02:49 96 Nasal Cannula* 2 28 LABS: Hematology Labs: Test 08/17/25 08:06 08/16/25 21:52 Range/Units White Blood Count 1.8 L 4.8-10.8 K/uL Red Blood Count 2.85 L 4.50-6.20 MIL/uL Hemoglobin 8.6 L 14.0-18.0 g/dL Hematocrit 25.7 L 42-54 % Mean Corpuscular Volume 90.2 79-99 fL Mean Corpuscular Hemoglobin 30.2 27.0-33.0 pg Mean Corpuscular Hemoglobin Concent 33.5 32.0-36.0 g/dL Red Cell Distribution Width 17.2 H 11.0-15.5 % Platelet Count 29 L 130-400 K/uL Mean Platelet Volume 10.1 7.5-10.5 fL Immature Granulocyte % (Auto) 0.6 0-1 % Neutrophils (%) (Auto) 62.2 40.0-77.0 % Lymphocytes (%) (Auto) 18.3 L 21.0-51.0 % Monocytes (%) (Auto) 18.3 H 3.0-13.0 % Eosinophils (%) (Auto) 0.0 0.0-8.0 % Basophils (%) (Auto) 0.6 0.0-5.0 % Neutrophils # (Auto) 1.1 L 1.8-7.7 K/uL Lymphocytes # (Auto) 0.3 L 1.0-4.8 K/uL Monocytes # (Auto) 0.3 0.1-1.0 K/uL Eosinophils # (Auto) 0.01 0.00-0.70 K/uL Basophils # (Auto) 0.01 0.00-0.20 K/uL Absolute Immature Granulocyte (auto 0.01 0-1 K/uL Nucleated Red Blood Cells 3.3 H 0.0-0.19 % Segmented Neutrophils % 39 L 40-70 % Band Neutrophils % 10 H 0-2 % Lymphocytes % (Manual) 24 22-44 % Monocytes % (Manual) 16 H 2-9 % Metamyelocytes % 8 H 0-0 % Other Cells % 3 H 0-0 Differential Comment MANUAL DIFFERENTIAL White Cell Morphology Comment SMUDGE CELLS 1+ Platelet Morphology Comment See comments Red Blood Cell Morphology See comments Chemistry Labs: Test 08/17/25 09:00 08/17/25 08:06 08/17/25 08:04 08/17/25 05:55 Range/Units Whole Blood Ketones Quantitative 0.3 0.0-0.6 mmol/L Sodium Level 141 136-145 mmol/L Potassium Level 4.9 3.5-5.1 mmol/L Chloride Level 106 101-111 mmol/L Carbon Dioxide Level 16 L 21-32 mmol/L Blood Urea Nitrogen 68 H 7-18 mg/dL Creatinine 4.8 H 0.5-1.3 mg/dL Glomerular Filtration Rate Calc 12 >90 mL/min Random Glucose 106 H 70-105 mg/dL Total Calcium 7.9 L 8.5-10.1 mg/dL Total Bilirubin 0.6 0.2-1.0 mg/dL Aspartate Amino Transf (AST/SGOT) 283 H 10-37 U/L Alanine Aminotransferase (ALT/SGPT) 128 H 12-78 U/L Alkaline Phosphatase 324 H 50-136 U/L Ammonia 54 H 11-32 umol/L Troponin I High Sensitivity 207 *H 4-75 ng/L Total Protein 5.7 L 6.0-8.3 g/dL Albumin 1.9 L 3.5-5.0 g/dL Whole Blood Glucose 98 70-110 MG/DL Hemoglobin A1c 7.2 H 4.0-6.0 % Estimated Average Glucose (eAG) 160 H 70-126 mg/dL Phosphorus Level 5.4 H 2.5-4.9 mg/dL Magnesium Level 2.00 1.80-2.40 mg/dL Test 08/17/25 00:23 08/16/25 21:52 Range/Units Procalcitonin 2.26 H 0.05-0.5 ng/mL Total Creatine Kinase 387 #H 21-232 U/L B-Type Natriuretic Peptide 448 H 0-100 pg/mL Coagulation Labs: Test 08/17/25 08:06 Range/Units Prothrombin Time 12.0 H 9.6-11.6 SEC Prothromb Time International Ratio 1.15 0.85-1.15 Activated Partial Thromboplast Time 27.3 26.3-35.5 SEC DIAGNOSTICS / RADIOLOGY RESULTS: [[facility] [address] [place] [address] IMAGING REPORT Signed PATIENT: GONZALO ESPINAL MR#: [id number] : 1955 SEX: M AGE: 70 LOCATION: [facility] ORDER 48 STATUS: [facility] REPORT#: [id number] SERVICE 47 REASON: shortness of breath ORDERING PHYSICIAN: KRISTINE MCCULLOUGH MD PROCEDURE: CXR1VW - CHEST 1VW EXAM: CR Chest, 1 view. CLINICAL HISTORY: Shortness of breath. COMPARISON: CR Chest. 05/15/2025. FINDINGS: The lungs show no infiltration or other acute findings. Stable mild scarring versus atelectasis in the left lower zone. No pneumothorax. Blunting of the left costophrenic angle. The cardio mediastinal silhouette is within normal limits. No acute osseous abnormality. IMPRESSION: Redemonstrated is a suspected mild left pleural effusion. Stable mild scarring versus atelectasis in the left lower zone. /Paul Smiths DICTATED BY: MARY JO HAMILTON Jr., MD DATE: 08/17/25 0028 ELECTRONICALLY SIGNED BY: MARY JO HAMILTON Jr., MD DATE: 08/17/25 0028 ] PLAN Upgrade antibiotics to meropenem and fluconazole Sodium bicarb pushes PRN Follow chemistries CMP Lactulose for hyperammonemia Reverse isolation for severe neutropenia Follow Hematology recommendations Follow Nephrology recommendations Recommend ID consult General surgery consult for suspected acute abdomen Patient did not tolerate CT abdomen and CT chest to lay flat. Ultrasound of the abdomen and chest x-ray Maintain map above 65 Navin-Synephrine drip instead of Levophed due to tachycardia. Weaning type leaflets and holding off on chemical DVT prophylaxis due to thrombocytopenia Patient is DNR NEURO: Minimize central acting medications as possible. Fall Precautions. Well lighted room through the day and minimize interruptions through the night to prevent acute delirium. PULMONARY: Supplemental 02 as needed Titrate Fio2 to keep Spo2 > or = 90% DuoNebs and CPT as needed IS hourly while awake for pulmonary hygiene Out of bed to chair as tolerated CARDIOVASCULAR: Follow hemodynamics. Titrate vasopressor to keep MAP >65 or systolic blood pressure >95mmHg DRIPS: none LINES: PIV GI & NUTRITION: Continue nutritional support Aspirations precautions Prokinetic agents and laxatives as needed KIDNEYS & ELECTROLYTES: Strict monitoring of intake and output Daily weights Avoid nephrotoxic agents Monitor electrolytes and replace as needed Goal urine output of 30mL/hr or 0.5mL/kg/hr ENDOCRINE: Maintain blood glucose between 100-180 at all times. Insulin sliding scale for blood glucose management INFECTIOUS DISEASE: Trend temperature. Méndez-culture if febrile. Micro: [ ] Panculture Antibiotics: Meropenem Fluconazole HEMATOLOGY & COAGULATION: Monitor H&H. Keep Hgb > 7 Transfuse 1 unit of PRBC for Hgb < 7 Transfuse 1 pack of platelets of platelets < 20, 000 Watch for any signs and symptoms of bleeding SKIN: Pressure ulcer prevention per facility protocol Rehab: PT/OT Prophylaxis: GI: Protonix DVT: SCD Code Status: Full Resuscitation Disposition: icu Other: Total patient care time exceeds 35 minutes excluding all procedures. Case was discussed and seen with my supervising physician. The above plan was formulated and agreed upon. ATTESTATION BY PHYSICIAN The patient has been seen and evaluated, the case has been discussed with the CLERK GUIDE, I agree with the clinical findings and plan of care. Saad Hernandez MD, NELLY J AGACN Aug 17, 2025 09:16
--- NOTE | 2025-08-17 10:35 | NUR ---
PATIENT BECAME VERY ANXIOUS UPON TRANSFERRING TO CT. BEGAN TO COMPLAIN OF SOB AND WAS BROUGHT BACK TO ROOM. PROVIDER CARMEN DUARTE NP INFORMED.
--- NOTE | 2025-08-17 10:36 | NUR ---
CT EXAM ON HOLD UNTIL FURTHER NOTICE: PATIENT UNSTABLE. NURSE WILL CALL WHEN READY.
[2025-08-17 12:28] LABS: % IRON SATURATION 88.9 % (30-44); IRON, SERUM 121.0 mcg/dL (65-175)
[2025-08-17] MEDS ORDERED: SODIUM BICARBONATE 650 MG TAB PO PRN (12:30)
--- NOTE | 2025-08-17 13:00 | NUR ---
ORDER FOR CPAP RECEIVED BY CARMEN DUARTE DIABETES TERRITORY MANAGER TO MANAGE LACTIC ACID. PT NOT TOLERATING CPAP MASK AND DECLINES TO HAVE IT ON. PROVIDER MADE AWARE.
--- NOTE | 2025-08-17 13:56 | PN ---
[facility] PROGRESS NOTE See note SUBJECTIVE: [ ] REVIEW OF SYSTEMS CONSTITUTIONAL: Denies fevers, chills, or night sweats. No unintentional weight loss reported. NEUROLOGICAL: Denies headache, amaurosis fugax, motor weakness, sensory deficit, vertigo/spinning sensation, gait abnormalities, or tremors. ENT: No hearing loss, otalgia, otorrhea, rhinitis, rhinorrhea, hoarseness, or sore throat. CARDIOVASCULAR: Denies any exertional angina, dyspnea on exertion, orthopnea, paroxysmal nocturnal dyspnea, palpitations, life-threatening arrhythmias, claudication. PULMONARY: Denies any shortness of breath, cough, phlegm/sputum, hemoptysis, pleuritic chest pain. SLEEP: Denies morning headaches, daytime somnolence or napping. Denies difficulty falling asleep, staying asleep, waking from sleep. Denies knowledge of snoring. GASTROINTESTINAL: Denies any type of dysphagia to either liquids or solids. Denies nausea, vomiting, pyrosis, early satiety, abdominal pain, diarrhea, constipation, or changes in stool consistency or caliber. Denies coffee-ground emesis, hematemesis, hematochezia, or melanotic stools. GENITOURINARY: Denies frequency, urgency, nocturia, hematuria or incontinence (Storage/Irritative symptoms.) Low urinary stream, straining to void, urinary intermittency or hesitancy, splitting of the voiding stream, terminal dribbling. ENDOCRINOLOGIC: Denies polyuria, polydipsia, polyphagia or heat/cold intolerances. HEMATOLOGIC: Denies thrombophilia/previous clots, or coagulopathy/bleeding disorders. ONCOLOGIC: Denies personal history of malignancy. DERMATOLOGIC: Denies rashes or pruritus. PSYCHIATRIC: Denies any suicidal or homicidal ideation. Denies hallucinations. PHYSICAL EXAM GENERAL APPEARANCE: The patient is awake, alert, and oriented, in no acute c ardiopulmonary distress. NEUROLOGICAL: Cranial nerves II-XII grossly intact. Motor is 5/5 in bilateral upper and lower extremities proximal to distal. No sensory deficits. HEENT: Face is symmetric. Pupils are equal and reactive. Extraocular movements are intact. NECK: Supple. No JVD. No thyromegaly. No submental, submandibular, pre- /postauricular, occipital or supraclavicular lymphadenopathy. CHEST: Normal chest expansion. No Telemetry. LUNGS: Absence of any rales, rhonchi or any wheezing. CARDIOVASCULAR: Regular. S1 and S2 normal. No appreciable rubs, murmurs or gallops. ABDOMEN: Soft, nontender, and nondistended. There is no rebound, voluntary guarding, or rigidity. : Deferred. No Rae. EXTREMITIES: Non-edematous and not cyanotic. No clubbing. Good capillary refill. SKIN: No skin breakdown. Vital Signs (last 8hr) Date Time Temp Pulse Resp B/P (MAP) Pulse Ox O2 Delivery O2 Flow Rate FiO2 08/17/25 12:45 115 34 40 08/17/25 06:38 102 22 N/Cannula Low lpm 3.0 32 08/17/25 06:32 99 22 LABS: Laboratory: Test 08/17/25 12:29 08/17/25 11:52 08/17/25 09:00 08/17/25 08:06 Range/Units Whole Blood Glucose 91 70-110 MG/DL Lactic Acid Level 5.0 H 0.8-2.5 mmol/L Whole Blood Ketones Quantitative 0.3 0.0-0.6 mmol/L White Blood Count 1.8 L 4.8-10.8 K/uL Red Blood Count 2.85 L 4.50-6.20 MIL/uL Hemoglobin 8.6 L 14.0-18.0 g/dL Hematocrit 25.7 L 42-54 % Mean Corpuscular Volume 90.2 79-99 fL Mean Corpuscular Hemoglobin 30.2 27.0-33.0 pg Mean Corpuscular Hemoglobin Concent 33.5 32.0-36.0 g/dL Red Cell Distribution Width 17.2 H 11.0-15.5 % Platelet Count 29 L 130-400 K/uL Mean Platelet Volume 10.1 7.5-10.5 fL Immature Granulocyte % (Auto) 0.6 0-1 % Neutrophils (%) (Auto) 62.2 40.0-77.0 % Lymphocytes (%) (Auto) 18.3 L 21.0-51.0 % Monocytes (%) (Auto) 18.3 H 3.0-13.0 % Eosinophils (%) (Auto) 0.0 0.0-8.0 % Basophils (%) (Auto) 0.6 0.0-5.0 % Neutrophils # (Auto) 1.1 L 1.8-7.7 K/uL Lymphocytes # (Auto) 0.3 L 1.0-4.8 K/uL Monocytes # (Auto) 0.3 0.1-1.0 K/uL Eosinophils # (Auto) 0.01 0.00-0.70 K/uL Basophils # (Auto) 0.01 0.00-0.20 K/uL Absolute Immature Granulocyte (auto 0.01 0-1 K/uL Nucleated Red Blood Cells 3.3 H 0.0-0.19 % Prothrombin Time 12.0 H 9.6-11.6 SEC Prothromb Time International Ratio 1.15 0.85-1.15 Activated Partial Thromboplast Time 27.3 26.3-35.5 SEC Sodium Level 141 136-145 mmol/L Potassium Level 4.9 3.5-5.1 mmol/L Chloride Level 106 101-111 mmol/L Carbon Dioxide Level 16 L 21-32 mmol/L Blood Urea Nitrogen 68 H 7-18 mg/dL Creatinine 4.8 H 0.5-1.3 mg/dL Glomerular Filtration Rate Calc 12 >90 mL/min Random Glucose 106 H 70-105 mg/dL Total Calcium 7.9 L 8.5-10.1 mg/dL Total Bilirubin 0.6 0.2-1.0 mg/dL Aspartate Amino Transf (AST/SGOT) 283 H 10-37 U/L Alanine Aminotransferase (ALT/SGPT) 128 H 12-78 U/L Alkaline Phosphatase 324 H 50-136 U/L Ammonia 54 H 11-32 umol/L Troponin I High Sensitivity 207 *H 4-75 ng/L Total Protein 5.7 L 6.0-8.3 g/dL Albumin 1.9 L 3.5-5.0 g/dL Test 08/17/25 08:05 08/17/25 05:55 08/17/25 02:30 08/17/25 00:23 Range/Units Blood Gas Specimen Type Arterial Arterial Blood pH 7.392 7.350-7.450 Arterial Blood Partial Pressure CO2 19 *L 35-48 mmHg Arterial Blood Partial Pressure O2 251.1 H 83.0-108.0 mmHg Arterial Blood HCO3 11.2 L 21.0-28.0 mmol/L Arterial Blood Oxygen Saturation 99.6 H 94.0-98.0 % Arterial Blood Base Excess -10.9 L -2.0-3.0 mmol/L Blood Gas Temperature 37.0 35.5-37.0 CELSIUS Blood Gas Flow-by 15.00 0.00-15.00 L/min Blood Gas Vent Mode NRM ROOM AIR FiO2 100.0 % Blood Gas Specimen Comment LB RAPIDRESP Hemoglobin A1c 7.2 H 4.0-6.0 % Estimated Average Glucose (eAG) 160 H 70-126 mg/dL Phosphorus Level 5.4 H 2.5-4.9 mg/dL Magnesium Level 2.00 1.80-2.40 mg/dL Iron Level 121 # 65-175 mcg/dL Total Iron Binding Capacity 136 L 250-450 mcg/dL Percent Iron Saturation 88.9 H 30-44 % Urine Color LIGHT-YELLOW YELLOW Urine Appearance CLEAR CLEAR Urine pH 6.5 5.0-8.0 Urine Specific [place] 1.016 1.001-1.031 Urine Protein 300 H NEGATIVE mg/dL Urine Glucose (UA) >=1000 H NEGATIVE mg/dL Urine Ketones NEGATIVE NEGATIVE mg/dL Urine Occult Blood MODERATE H NEGATIVE Urine Nitrate NEGATIVE NEGATIVE Urine Bilirubin NEGATIVE NEGATIVE mg/dL Urine Urobilinogen 0.2 0.2-1.0 mg/dL Urine Leukocyte Esterase NEGATIVE NEGATIVE Alvaro/uL Urine RBC 0-1 0-1 /HPF Urine WBC 0-1 0-1 /HPF Urine Squamous Epithelial Cells RARE 0-2 /HPF Urine Bacteria FEW None Seen /HPF Urine Hyaline Casts 2-5 H 0-1 /LPF /LPF Urine Random Creatinine 42.28 30-135 mg/dL Urine Random Sodium 73 40-220 mmol/l Procalcitonin 2.26 H 0.05-0.5 ng/mL Test 08/16/25 21:52 Range/Units Segmented Neutrophils % 39 L 40-70 % Band Neutrophils % 10 H 0-2 % Lymphocytes % (Manual) 24 22-44 % Monocytes % (Manual) 16 H 2-9 % Metamyelocytes % 8 H 0-0 % Other Cells % 3 H 0-0 Differential Comment MANUAL DIFFERENTIAL White Cell Morphology Comment SMUDGE CELLS 1+ Platelet Morphology Comment See comments Red Blood Cell Morphology See comments Total Creatine Kinase 387 #H 21-232 U/L B-Type Natriuretic Peptide 448 H 0-100 pg/mL Acetaminophen Level < 1 L 10-29 mcg/mL Serum Alcohol < 3 0-10 mg/dL Current Medications Medications (Trade) Dose Ordered Sig/Chinmay Route PRN Reason Start Time Stop Time Status Last Admin Dose Admin Acetaminophen (TYLenol 325MG TAB) 650 mg Q6H PRN PO TEMPERATURE GREATER THAN 101.5 08/17/25 01:30 09/16/25 01:29 Albuterol (DUOneb) 1 UDVIAL [id number] IH 08/17/25 06:00 08/17/25 09:00 DC 08/17/25 06:30 1 UDVIAL Aspirin (Aspirin 81mg Ec Tab) 81 mg DAILY PO 08/17/25 09:00 08/17/25 09:15 DC Atorvastatin Calcium (LIPItor 40MG) 40 mg HS PO 08/17/25 21:00 08/17/25 01:29 DC Atorvastatin Calcium (LIPItor 40MG) 40 mg HS PO 08/17/25 21:00 08/17/25 09:15 DC Budesonide (Pulmicort 0.5 Mg/2ml) 0.5 mg BIDRESP IH 08/17/25 06:00 09/16/25 05:59 08/17/25 06:30 0.5 MG Cefepime HCl (MAXipime 1 GM vial) 1 gm Q24H IVPB 08/17/25 09:30 08/27/25 09:29 08/17/25 09:26 1 GM Guaifenesin (RobiTUSSin SUGAR-FREE 100 MG/ 5 ML UDCUP) 400 mg Q4H PRN PO cough 08/17/25 01:30 09/16/25 01:29 Hydralazine HCl (APRESOLine 20MG INJ) 10 mg Q6H PRN IV For:SBP above 160;DBP above 90 08/17/25 01:30 09/16/25 01:29 Hydromorphone HCl (DiLAUDid 0.5MG INJ) 0.25 mg Q4H PRN IVP SEVERE PAIN (7-10) 08/17/25 01:30 08/22/25 01:29 08/17/25 06:56 0.25 MG Insulin Human Regular (humuLIN R 100 UNIT/ML 3ML) INSULIN SLIDING SCAL... ACHS SQ 08/17/25 07:30 09/16/25 07:29 Lactated Ringer's 1,000 ml @ 50 mls/hr Q20H IV 08/17/25 01:30 09/16/25 01:29 08/17/25 03:13 75 MLS/HR Lactulose (Constulose 20gm/ 30ml Udcup) 20 gm BID PRN PO CONSTIPATION 08/17/25 01:30 08/17/25 09:17 DC Lactulose (Constulose 20gm/ 30ml Udcup) 20 gm BID PRN PO CONSTIPATION 08/17/25 09:30 09/16/25 09:29 Metoprolol Tartrate (loprESSOR) 5 mg Q5MIN PRN IV AFIB RVR HR>120BPM 08/17/25 04:00 Metoprolol Tartrate (loprESSOR) 12.5 mg BID PO 08/17/25 09:00 09/16/25 08:59 Metronidazole/ Sodium Chloride 100 ml @ 100 mls/hr Q8H6 IVPB 08/17/25 14:00 08/27/25 13:59 Nitroglycerin (Nitrostat) 0.4 mg PROTOCOL PRN SL CHEST PAIN 08/17/25 01:30 09/16/25 01:29 Ondansetron HCl (zoFRAN 4MG INJ) 4 mg Q6H PRN IV NAUSEA/VOMITING 08/17/25 01:30 09/16/25 01:29 Pantoprazole Sodium (PROTonix 40MG TAB) 40 mg DAILY PO 08/17/25 09:00 09/16/25 08:59 Pharmacy Profile Note (Pharmacy Communication) 1 each ONCE MISC 08/17/25 03:30 08/17/25 03:33 DC Phenylephrine HCl 10 mg/Sodium Chloride 250 ml @ 0 mls/hr PROTOCOL PRN IV PROTOCOL 08/17/25 12:30 09/16/25 12:29 Piperacillin Sod/ Tazobactam Sod (Zosyn 3.375gm+NS 50ml) 3.375 gm Q12H IV 08/17/25 01:30 08/17/25 09:11 DC 08/17/25 01:58 3.375 GM Sodium Bicarbonate (Sodium Bicarbonate) 650 mg BID PRN PO INDIGESTION 08/17/25 12:30 09/16/25 12:29 DIAGNOSTICS / RADIOLOGY: [ ] ASSESSMENT: [ ] PLAN: [ ] MICAH MANZANO IV, MD Aug 17, 2025 13:56
[2025-08-17] MEDS: PHARMACY COMMUNICATION MISC SCH (14:30)
[2025-08-17] MEDS: SODIUM BICARBONATE 650 MG TAB PO SCH (14:30)
--- NOTE | 2025-08-17 14:50 | HMCIMG ---
EXAM: CR Chest, 1 View. CLINICAL HISTORY: hypoxic resp failure COMPARISON: None provided. FINDINGS: LUNGS: Patchy left basilar infiltrate. Right lung clear PLEURAL SPACES: No evidence of pleural effusion or pneumothorax. MEDIASTINUM: Cardiac silhouette prominent BONES: No aggressive appearing osseous lesion seen. IMPRESSION: 1. Patchy left basilar infiltrate. Slightly worse compared to August 16, 2025. 2. Right lung clear 3. Cardiac silhouette prominent /[place]
[2025-08-17] MEDS: ALBUMIN (HUMAN) 5% 250 ML IV ONE (15:56)
[2025-08-17] MEDS: MEROPENEM 1GM 1 GM VIAL IVPB SCH (15:56)
--- NOTE | 2025-08-17 16:50 | NUR ---
PATIENT AGREES FOR CPAP AFTER REFUSING IT. ORDERING PROVIDER MADE AWARE THE PATIENT WAS DECLINING CPAP
--- NOTE | 2025-08-17 16:55 | CONS ---
GENERAL SURGERY CONSULTATION NOTE Date/Time Patient Seen: [08/17/2025 1400 ] Requesting Physician: [ ] Reason for Consultation: [abdominal pain, sepsis ] History of Present Illness: [70 year old male currently in ICU due to sepsis, respiratory failure, renal failure and pleural effusion. As per , patient has also been complaining of diffuse abdominal pain on and off for the past 1 week. states patient has not had a bowel movement in 5 days. denies patient is having any episodes of nausea, vomiting, bloody or melena stool. WBCs today down to 1.8, H&H 8.6 and 25.7, with platelets at 29. BUN 68 with creatinine of 4.8 and GFR of 12. Lactic acid at 4.0 today. Bilirubin 0.6, AST 283, ALT 128 and alkaline phosphatase 324. Patient has a history of leukemia/MDS which he is currently getting Venetoclax (BCL-2 inhibitors) as outpatient. states that patient also had a blood transfusion and platelet transfusion 1 week ago with his oncologist. Past surgical history of appendectomy and hernia repair surgery m any years ago. Patient was not able to tolerate getting CT scan due to his respiratory problems] Past Medical History: [ ] Past Surgical History: [Appendectomy and hernia repair surgery ] Family History: [ ] Social History: [ ] Habits: [Never] smoker. [Denies] alcohol consumption. [Denies] illicit drug use Current Medications Medications (Trade) Dose Ordered Sig/Chinmay Route Start Time Stop Time Status Last Admin Dose Admin Albuterol (DUOneb) 1 UDVIAL D2IEILH IH 08/17/25 06:00 08/17/25 09:00 DC 08/17/25 06:30 1 UDVIAL Aspirin (Aspirin 81mg Ec Tab) 81 mg DAILY PO 08/17/25 09:00 08/17/25 09:15 DC Atorvastatin Calcium (LIPItor 40MG) 40 mg HS PO 08/17/25 21:00 08/17/25 01:29 DC Atorvastatin Calcium (LIPItor 40MG) 40 mg HS PO 08/17/25 21:00 08/17/25 09:15 DC Budesonide (Pulmicort 0.5 Mg/2ml) 0.5 mg BIDRESP IH 08/17/25 06:00 09/16/25 05:59 08/17/25 06:30 0.5 MG Cefepime HCl (MAXipime 1 GM vial) 1 gm Q24H IVPB 08/17/25 09:30 08/17/25 14:23 DC 08/17/25 09:26 1 GM Fluconazole/ Sodium Chloride 100 ml @ 100 mls/hr DAILY IV 08/18/25 09:00 08/28/25 08:59 Insulin Human Regular (humuLIN R 100 UNIT/ML 3ML) INSULIN SLIDING SCAL... ACHS SQ 08/17/25 07:30 09/16/25 07:29 Lactated Ringer's 1,000 ml @ 50 mls/hr Q20H IV 08/17/25 01:30 09/16/25 01:29 08/17/25 03:13 75 MLS/HR Meropenem (Merrem 1gm) 1 gm Q12H IVPB 08/17/25 15:00 08/27/25 14:59 08/17/25 15:56 1 GM Metoprolol Tartrate (loprESSOR) 12.5 mg BID PO 08/17/25 09:00 09/16/25 08:59 Metronidazole/ Sodium Chloride 100 ml @ 100 mls/hr Q8H6 IVPB 08/17/25 14:00 08/17/25 14:23 DC 08/17/25 14:06 100 MLS/HR Pantoprazole Sodium (PROTonix 40MG TAB) 40 mg DAILY PO 08/17/25 09:00 09/16/25 08:59 Pharmacy Profile Note (Pharmacy Communication) 1 each ONCE MISC 08/17/25 03:30 08/17/25 03:33 DC Pharmacy Profile Note (Pharmacy Communication) 1 each ONCE MISC 08/17/25 14:30 08/24/25 14:29 Piperacillin Sod/ Tazobactam Sod (Zosyn 3.375gm+NS 50ml) 3.375 gm Q12H IV 08/17/25 01:30 08/17/25 09:11 DC 08/17/25 01:58 3.375 GM Sodium Bicarbonate (Sodium Bicarbonate) 1,300 mg BID PO 08/17/25 14:30 09/16/25 14:29 Review of Systems: CONST: [No fever, +fatigue.] EYES: [No recent vision problems.] ENT: [No congestion, ear pain, or sore throat.] C/V: [No chest pain, palpitations, or edema.] RESP: [+ cough and shortness of breath.] GI: [+ abdominal pain and constipation, denies nausea, vomiting or diarrhea.] : [No incontinence or dysuria.] SKIN: [No rash.] NEURO: [No headache, focal numbness or weakness, dizziness, or seizures.] Physical Examination: GENERAL: [No acute distress, comfortably resting in bed, at bedside.] HEAD: [Normocephalic.] EYES: [Nonicteric sclera bilaterally.] ENT: [Dry oral mucosa.] NECK: [Supple without JVD.] LUNGS: [fine scattered rales .] HEART: [Normal rate and rhythm.] VASC: [Peripheral pulses +2 bilaterally.] ABD: [Bowel sounds normal, soft, diffuse tenderness on deep palpation, no guarding or rigidity.] : [Indwelling Rae catheter in place] EXT: [No edema.] SKIN: [No rashes or lesions noted.] NEURO: [Awake, alert, and oriented x1.] Vital Signs (last 8hr) Date Time Temp Pulse Resp B/P (MAP) Pulse Ox O2 Delivery O2 Flow Rate FiO2 08/17/25 15:22 97.3 120 40 74/48 (57) 71 32 08/17/25 15:18 74/48 08/17/25 12:45 115 34 40 08/17/25 12:00 117 25 96/34 98 Nasal Cannula 3.0 Laboratory: [ ] Hematology Labs: Test 08/17/25 08:06 08/16/25 21:52 Range/Units White Blood Count 1.8 L 4.8-10.8 K/uL Red Blood Count 2.85 L 4.50-6.20 MIL/uL Hemoglobin 8.6 L 14.0-18.0 g/dL Hematocrit 25.7 L 42-54 % Mean Corpuscular Volume 90.2 79-99 fL Mean Corpuscular Hemoglobin 30.2 27.0-33.0 pg Mean Corpuscular Hemoglobin Concent 33.5 32.0-36.0 g/dL Red Cell Distribution Width 17.2 H 11.0-15.5 % Platelet Count 29 L 130-400 K/uL Mean Platelet Volume 10.1 7.5-10.5 fL Immature Granulocyte % (Auto) 0.6 0-1 % Neutrophils (%) (Auto) 62.2 40.0-77.0 % Lymphocytes (%) (Auto) 18.3 L 21.0-51.0 % Monocytes (%) (Auto) 18.3 H 3.0-13.0 % Eosinophils (%) (Auto) 0.0 0.0-8.0 % Basophils (%) (Auto) 0.6 0.0-5.0 % Neutrophils # (Auto) 1.1 L 1.8-7.7 K/uL Lymphocytes # (Auto) 0.3 L 1.0-4.8 K/uL Monocytes # (Auto) 0.3 0.1-1.0 K/uL Eosinophils # (Auto) 0.01 0.00-0.70 K/uL Basophils # (Auto) 0.01 0.00-0.20 K/uL Absolute Immature Granulocyte (auto 0.01 0-1 K/uL Nucleated Red Blood Cells 3.3 H 0.0-0.19 % Segmented Neutrophils % 39 L 40-70 % Band Neutrophils % 10 H 0-2 % Lymphocytes % (Manual) 24 22-44 % Monocytes % (Manual) 16 H 2-9 % Metamyelocytes % 8 H 0-0 % Other Cells % 3 H 0-0 Differential Comment MANUAL DIFFERENTIAL White Cell Morphology Comment SMUDGE CELLS 1+ Platelet Morphology Comment See comments Red Blood Cell Morphology See comments Chemistry Labs: Test 08/17/25 15:21 08/17/25 12:29 08/17/25 09:00 08/17/25 08:06 Range/Units Lactic Acid Level 4.4 H 0.8-2.5 mmol/L Troponin I High Sensitivity 180 *H 4-75 ng/L Whole Blood Glucose 91 70-110 MG/DL Whole Blood Ketones Quantitative 0.3 0.0-0.6 mmol/L Sodium Level 141 136-145 mmol/L Potassium Level 4.9 3.5-5.1 mmol/L Chloride Level 106 101-111 mmol/L Carbon Dioxide Level 16 L 21-32 mmol/L Blood Urea Nitrogen 68 H 7-18 mg/dL Creatinine 4.8 H 0.5-1.3 mg/dL Glomerular Filtration Rate Calc 12 >90 mL/min Random Glucose 106 H 70-105 mg/dL Total Calcium 7.9 L 8.5-10.1 mg/dL Total Bilirubin 0.6 0.2-1.0 mg/dL Aspartate Amino Transf (AST/SGOT) 283 H 10-37 U/L Alanine Aminotransferase (ALT/SGPT) 128 H 12-78 U/L Alkaline Phosphatase 324 H 50-136 U/L Ammonia 54 H 11-32 umol/L Total Protein 5.7 L 6.0-8.3 g/dL Albumin 1.9 L 3.5-5.0 g/dL Test 08/17/25 05:55 08/17/25 00:23 08/16/25 21:52 Range/Units Hemoglobin A1c 7.2 H 4.0-6.0 % Estimated Average Glucose (eAG) 160 H 70-126 mg/dL Phosphorus Level 5.4 H 2.5-4.9 mg/dL Magnesium Level 2.00 1.80-2.40 mg/dL Iron Level 121 # 65-175 mcg/dL Total Iron Binding Capacity 136 L 250-450 mcg/dL Percent Iron Saturation 88.9 H 30-44 % Procalcitonin 2.26 H 0.05-0.5 ng/mL Total Creatine Kinase 387 #H 21-232 U/L B-Type Natriuretic Peptide 448 H 0-100 pg/mL Coagulation Labs: Test 08/17/25 08:06 Range/Units Prothrombin Time 12.0 H 9.6-11.6 SEC Prothromb Time International Ratio 1.15 0.85-1.15 Activated Partial Thromboplast Time 27.3 26.3-35.5 SEC Diagnostics / Radiology: [Copy/Paste Echos/Imaging Report here] Assessment: [80-year-old male with abdominal pain ] Plan: [We will hold off on CT scan abdomen pelvis until patient is able to tolerate lying flat for exam Abdominal ultrasound has been ordered but pending to be done We will order KUB Keep NPO except meds for now Continue with lactulose PO We will add Dulcolax suppository Continue with IV fluids and IV antibiotics We will continue with conservative management for now, no emergent surgery Repeat labs in a.m. Continue with management by ICU team Surgical team will continue to follow closely Dr. Robin updated on patient's status Surgical case has been discussed with my supervising physician Plan of care was formulated and agreed upon We appreciate the hospitalist team for allowing us to participate in this patient's care Greater than 55 minutes spent examining patient, reviewing chart and working on documentation] ATTESTATION BY PHYSICIAN I have seen and examined the patient. I reviewed the documentation, medical decision making, and treatment plan as noted by the mid-level provider above. I agree with the findings and plan of care. MD JOVANI VALENTE LETICIA [facility] Aug 17, 2025 16:55
--- NOTE | 2025-08-17 17:05 | NUR ---
PT IS REMOVING CPAP AND DECLINING TO COOPERATE WITH DEVICE. STATES HIS ABILITY TO BREATH IS WORSENED BY THE CPAP DEVICE. EDUCATED PATIENT REASON FOR ORDERED CPAP. CONTINUES TO REMOVE DEVICE.
--- NOTE | 2025-08-17 17:07 | NUR ---
BLADDER SCAN UNREMARKABLE. LESS THAN 30 CC
--- NOTE | 2025-08-17 18:47 | HMCIMG ---
EXAM: CR Abdomen, 1 View. CLINICAL HISTORY: SBO vs ileus COMPARISON: None provided. FINDINGS: BOWEL: The bowel gas pattern is within normal limits. PERITONEUM/SOFT TISSUES: No free air evident. No pathologic appearing calcification. BONES: No acute osseous abnormality. IMPRESSION: The bowel gas pattern is within normal limits. /[place]
--- NOTE | 2025-08-17 18:50 | HMCIMG ---
EXAM: ULTRASOUND OF THE LIVER AND SPLEEN CLINICAL HISTORY: Increased liver enzymes TECHNIQUE: Real-time abdominal ultrasound performed in multiple planes. Examination is very limited due to increased bowel gas and abdominal distention, obscuring visualization of several abdominal organs. COMPARISON: CT ABDOMEN/PELVIS 05/18/25 14:58 CDT FINDINGS: LIVER: The liver measures approximately 16 cm in length. Lesions/Masses: No focal hepatic lesions identified. There is Liver Appearance: Normal echogenicity. There is hepatopetal flow measuring 17 cm/s present in the portal vein. The common bile duct measures 5 mm in diameter (within normal limits). SPLEEN: Obscured. GALLBLADDER: Wall thickness 2 mm. Small stones noted. No pericholecystic fluid or wall thickening. PANCREAS: Obscured by bowel gas. RIGHT KIDNEY: Measures 9.4 x 5.7 x 3.2 cm. Normal cortical echogenicity and corticomedullary differentiation. No hydronephrosis or focal lesion. LEFT KIDNEY: Obscured. Aorta:Obscured. IMPRESSION: 1. Limited study due to increased bowel gas and abdominal distention. 2. Small gallstones without evidence of acute cholecystitis. 3. Similar appearance compared to CT abdomen/pelvis of 05/18/25 14:58 CDT /[place]
--- NOTE | 2025-08-17 20:51 | NUR ---
Spokw to Nakul Falk regarding patients condition. Not able to give patient po meds due to patients altered mental status. Patients wave form for the spo2 is not great provider informed. Attempted to get an SPO2 on various positions. Patient is also borderline hypoglycemic with his glucose at 70. Provider ordered d5 at 75 ml/hr, ng tube insertion, combs insertion, and an ABG.
[2025-08-17] MEDS ORDERED: DEXTROSE 5%-WATER 1,000 ML IV SCH (21:00)
[2025-08-17 21:53] LABS: ABG BASE EXCESS -9.8 mmol/L (-2.0-3.0); ABG HCO3 14.0 mmol/L (21.0-28.0); ABG OXYGEN SATURATION 96.9 % (94.0-98.0); ABG PCO2 24 mmHg (35-48); ABG PH 7.391 (7.350-7.450); CARBON MONOXIDE 0.1 % (0.5-1.5); DEVICE COMMENT RR JAMES; PO2, ARTERIAL BG 112.9 mmHg (83.0-108.0); TEMPERATURE, CELSIUS BG 37.0 CELSIUS (35.5-37.0); VENT MODE, BG NC (ROOM AIR)
--- NOTE | 2025-08-18 01:55 | CONS ---
REFERRING PHYSICIAN: Dr. Piedra. REASON FOR CONSULTATION: Renal failure. HISTORY OF PRESENT ILLNESS: A 70-year-old male with a history of known leukemia. The patient apparently receiving outpatient chemotherapy. He presented to the hospital with failure to thrive. The patient has been having poor intake and shortness of breath. In the Emergency Room, the patient was found to have pancytopenia. Laboratory values revealed an elevated BUN and creatinine and he is being seen in consultation for all of the above. PAST MEDICAL HISTORY: Diabetes mellitus, hypertension, coronary artery disease, leukemia. PAST SURGICAL HISTORY: CABG, appendectomy. SOCIAL HISTORY: Lives with family. No tobacco use. FAMILY HISTORY: There is no Castrejon in the family. ALLERGIES: No allergies. MEDICATIONS: Medications are noted. REVIEW OF SYSTEMS: GENERAL: He is feeling weak and tired. HEENT: No change in vision. No change in hearing. CARDIOVASCULAR: There is no current chest pain or palpitations. PULMONARY: As described above, shortness of breath. GASTROINTESTINAL: Appetite is poor. MUSCULOSKELETAL: Complains of weakness. NEUROLOGIC: No history of seizures or focal deficits. PSYCHIATRIC: No history of recent psychosis. ENDOCRINE: Diabetes mellitus. No history of thyroid disease. HEME: As described above. PHYSICAL EXAMINATION: VITAL SIGNS: Blood pressure 127/60, pulse 90. GENERAL: Chronically ill, male, elderly, laying in bed on the medical floor. HEENT: Head is atraumatic. Pupils equal, round, and reactive to light. Oropharynx is without exudate. Nares clear. NECK: There is no JVP. There is no thyromegaly. No mass. CARDIOVASCULAR: Regular. There is no S3 or S4, gallop. LUNGS: Coarse with equal thoracic movement. ABDOMEN: Soft, nondistended, nontender. EXTREMITIES: Reveal no clubbing, no cyanosis. NEUROLOGICAL: He is awake. He is alert. He is oriented. SKIN: Reveals no rashes. BACK: There is no CVA tenderness. No back deformities. LABORATORY DATA: Sodium 141, potassium 4.9, chloride 106, bicarb 16, BUN 68, creatinine 4.8, lactic acid 5. Hemoglobin 8.6; hematocrit 25; white cell count 1.8; platelet count 29,000. Chest x-ray is noted. IMPRESSION: * [id number] renal failure. * Leukemia. * Pancytopenia. * Hypertension. * Known coronary artery disease. * Acidosis. PLAN: The patient presents with significant renal dysfunction. He is started on some general hydration. Urine electrolytes are all noted. He has a history of known chronic renal insufficiency. There is no acute need for any form of renal replacement therapy. The patient with evidence of pancytopenia and has a history of leukemia. The patient is to be evaluated by Oncology and will continue to follow. He does have significant anemia. We will check iron levels for completeness. The patient is a DNR per his own request. There is no acute need for any form of replacement therapy at this time. The patient and family at the bedside. Multiple questions were answered. TID: [id number] RECEIPT: [id number]
--- NOTE | 2025-08-18 10:22 | DS ---
Discharge Summary Hospital Course Summary: Admitted due to sepsis with lactic acidosis in the setting of pancytopenia due to MDS/leukemia on BCL2 inhibitors. He underwent IV fluid resuscitation and was placed on broad-spectrum antibiotics while cultures were obtained. The patient's respiratory function worsened and he was upgraded to the ICU. ABG demonstrated metabolic acidosis with the appropriate respiratory compensation. IV pressors were initiated as the patient continued to downtrend and developed shock. Due to exquisite tenderness of the abdomen CT abdomen was attempted unfortunately patient was unable to tolerate this procedure and an ultrasound was obtained. surgery was consulted due to concerns acute abdomen. Patient continued to deteriorate and went into cardiac arrest. Patient was DNR. Patient at 2310 Assessment/Plan: ASSESSMENT: Sepsis, intra-abdominal source, POA Septic shock, POA Lactic acidosis, POA Myelodysplastic syndrome/leukemia, POA Pancytopenia, POA PAULETTE, POA, 05/21/2025, creatinine 1.5, today it is 4.1 elevated troponin, poa CAD Diabetes mellitius type2 Hypertension Hyperlipidemia Anemia PLAN: [ ] Home Medications: Active Scripts Cyanocobalamin (Vitamin B-12) (Vitamin B-12) 1,000 Mcg Tablet, 1000 MCG PO DAILY, #30 TAB Prov:DAVID QUINONES MD 05/21/25 Reported Medications Insulin Degludec (Tresiba) 100 Unit/Ml Vial, 30 UNIT SQ DAILY, VIAL 05/17/25 Insulin NPL/Insulin Lispro (Humalog Mix 75-25 Kwikpen) 100 Unit/Ml (75-25) Insuln.pen, 30 UNITS SQ BID, SYRINGE 05/17/25 Ferrous Sulfate (Ferrous Sulfate) 325 Mg (65 Mg Iron) Tablet, 1 TAB PO DAILY for 30 Days, #30 TAB 0 Refills 05/15/25 Folic Acid (Folic Acid) 0.8 Mg Capsule, 1 CAP PO DAILY for 30 Days, #30 CAP 0 Refills 05/15/25 [place]-3 Fatty Acids/Fish Oil ([place] 3 1,000 mg Softgel) 300 Mg-1,000 Mg Capsule, 1 CAP PO DAILY for 30 Days, #90 CAP 0 Refills WITH MEALS 05/15/25 Omeprazole (Omeprazole) 20 Mg Capsule.dr, 1 CAP PO DAILY for 30 Days, #30 CAP 0 Refills 05/15/25 Metoprolol Tartrate (Metoprolol Tartrate) 25 Mg Tablet, 1 TAB PO DAILY for 30 Days, #60 TAB 0 Refills 05/15/25 Duloxetine HCl (Duloxetine HCl) 30 Mg Capsule.dr, 1 CAP PO DAILY for 30 Days, #30 CAP 0 Refills 05/15/25 Rosuvastatin Calcium (Rosuvastatin Calcium) 40 Mg Tablet, 1 TAB PO DAILY for high cholesterol for 30 Days, #30 TAB 0 Refills 05/15/25 Lisinopril (Lisinopril) 20 Mg Tablet, 1 TAB PO DAILY for 30 Days, #30 TAB 0 Refills 05/15/25 Time spent arranging discharge: 31-60 minutes MICAH MANZANO IV, MD Aug 18, 2025 10:22
== END 2025-08-17 23:10 | DRG 871 ==
LOC: EDBD 21:39 → EDH 21:39 → EDHIP 23:53 → 4AH 08-17 01:49 → 2BH 08-17 12:40
PROVIDERS: ADMIT Internal Medicine; ATTEND Internal Medicine
PROC: 5A09357 Assistance with Respiratory Ventilation, Less than 24 Consecutive Hours, Continuous Positive Airway Pressure (ICD-10-PCS; principal; 2025-08-17)
DX: A41.9 Sepsis, unspecified organism (principal); I21.4 Non-ST elevation (NSTEMI) myocardial infarction; R65.21 Severe sepsis with septic shock; J96.01 Acute respiratory failure with hypoxia; C95.90 Leukemia, unspecified not having achieved remission; D61.818 Other pancytopenia; E87.21 Acute metabolic acidosis; J90 Pleural effusion, not elsewhere classified; N17.9 Acute kidney failure, unspecified; E11.22 Type 2 diabetes mellitus with diabetic chronic kidney disease; E78.00 Pure hypercholesterolemia, unspecified; I25.10 Atherosclerotic heart disease of native coronary artery without angina pectoris; I46.9 Cardiac arrest, cause unspecified; J44.9 Chronic obstructive pulmonary disease, unspecified; K59.00 Constipation, unspecified; N18.9 Chronic kidney disease, unspecified; I12.9 Hypertensive chronic kidney disease with stage 1 through stage 4 chronic kidney disease, or unspecified chronic kidney disease; R62.7 Adult failure to thrive; Z66 Do not resuscitate; Z79.4 Long term (current) use of insulin; Z51.5 Encounter for palliative care; Z79.51 Long term (current) use of inhaled steroids; Z79.82 Long term (current) use of aspirin; Z79.899 Other long term (current) drug therapy; Z82.3 Family history of stroke; Z82.49 Family history of ischemic heart disease and other diseases of the circulatory system; Z83.3 Family history of diabetes mellitus; Z90.49 Acquired absence of other specified parts of digestive tract; Z95.1 Presence of aortocoronary bypass graft
CPT/HCPCS: 36415; 36556; 36600; 71045; 74018; 76700; 80048; 80053; 81001; 82010; 82140; 82435; 82550; 82570; 82803; 82947; 82948; 83036; 83540; 83550; 83605; 83735; 83880; 83935; 84100; 84132; 84145; 84295; 84300; 84484; 85018; 85025; 85610; 85730; 87040; 93005; 94640; 94660; 94664; 99285; C1894; G0378; J0692; J1171; J2185; J2371; J2543; J3490; J7030; J7050; P9045; C1751